=== PATIENT | female | born 1950 | race Caucasian/White ===

== ENCOUNTER 2020-11-14 16:09 | Emergency (ER) | payer MEDICARE, SELFPAY ==
[2020-11-14 16:34] VITALS: BP 183/78; PULSE 74; RESP 18; TEMP 36.6; O2SAT 95; BMI 27.4
--- NOTE | 2020-11-14 17:31 | ECG_ITS ---
Test Reason : anxiety Blood Pressure : / mmHG Vent. Rate : 070 BPM Atrial Rate : 070 BPM P-R Int : 188 ms QRS Dur : 084 ms QT Int : 382 ms P-R-T Axes : 028 -12 029 degrees QTc Int : 412 ms Normal sinus rhythm Voltage criteria for left ventricular hypertrophy Abnormal ECG When compared with ECG of 13-FEB-2018 15:47, Premature ventricular complexes are no longer Present Referred By: Lissette Rivera Electronically Signed By:ANASTASIYA BATES
--- NOTE | 2020-11-14 17:34 | ED_ITS ---
HPI - Anxiety General Chief Complaint: Anxiety Stated Complaint: Anxiety Time Seen by Provider: 11/14/20 16:57 Source: patient and family Mode of arrival: ambulatory Limitations: no limitations History of Present Illness HPI narrative: patient comes emergency room complaining of anxiety, and feeling like she wants to cry. she has had these feelings for 3 days, states that she had there are no significant event that may have triggered this anxiety. Patient has limited speech due to a previous stroke, however she was able to explain that she feels very anxious, has had this issues in the past before with anxiety. Patient was medicated, last time she had a panic attack was 1 and half years ago. Patient denies chest pain, no shortness of breath. Initially was noted that patient's blood pressure is 183/78, on recheck is 160/70, as mentioned above, no chest pain, no shortness of breath, denies leg swelling, states she is compliant with her blood pressure medication MD complaint: anxiety Related Data Previous Rx's Medication Instructions Recorded amlodipine 10 mg tablet 10 mg PO DAILY 90 Days #90 tab 10/03/20 aspirin 81 mg tablet,delayed 81 mg PO DAILY 90 Days #90 tab 10/03/20 release atorvastatin 80 mg tablet 80 mg PO BEDTIME 90 Days #90 tab 10/03/20 glipizide 5 mg tablet 5 mg PO DAILY 90 Days #90 tab 10/03/20 hydrochlorothiazide 25 mg tablet 25 mg PO DAILY 90 Days #90 tab 10/03/20 lisinopril 40 mg tablet 40 mg PO DAILY 90 Days #90 tab 10/03/20 metformin 1,000 mg tablet 1,000 mg PO BID 90 Days #180 tab 10/03/20 omeprazole 20 mg capsule,delayed 20 mg PO DAILY 90 Days #90 cap 10/03/20 release sitagliptin 25 mg tablet 25 mg PO DAILY 90 Days #90 tab 10/03/20 lorazepam [Ativan] 0.5 mg PO TID PRN #10 tab 11/14/20 Allergies Allergy/AdvReac Type Severity Reaction Status Date / Time No Known Allergies Allergy Verified 03/28/20 09:09 [No Known Allergies*] Review of Systems Review of Systems: Constitutional : No Weight loss, No Fever, No Chills, No Night Sweats, No Fatigue, No Malaise ENT/Mouth : No Hearing loss, No Ear Pain, No Nasal Congestion, No Sinus Pain, No Hoarseness, No sore throat, No Rhinorrhea, No Swallowing Difficulty Eyes: No Eye Pain, No Swelling, No Redness, No Foreign Body, No Discharge, No Vision Changes Cardiovascular : No Chest Pain, No SOB, No Dyspnea on Exertion, No Orthopnea, No Edema, No Palpitations Respiratory : No Cough, No Sputum, No Wheezing, No Smoke Exposure, No Dyspnea Gastrointestinal : No Nausea, No Vomiting, No Diarrhea, No Constipation, No abdominal Pain, No Hematochezia, No Melena Genitourinary : no irregular bleeding, No Dysuria, No Urinary Frequency, No Hematuria, No Urinary Incontinence, No Urgency, No Flank Pain, No Urinary Flow Changes, No Hesitancy Musculoskeletal : No joint pain, No Myalgias, No Joint Swelling Skin : No Skin Lesions, No rash Neuro : No Weakness, No Numbness, No Paresthesias, No Loss of Consciousness, No Dizziness, No Headache Psych : Complaining of anxiety and having the sensation that she wants to cry No SI/HI/AH/VH, No Social Issues, Heme/Lymph: No Bruising, No Bleeding,No Lymphadenopathy Endocrine : No Polyuria, No Polydipsia, No Temperature Intolerance PMFSH Past Medical History Medical History Diabetes mellitus Dyslipidemia Essential hypertension GERD (gastroesophageal reflux disease) Surgical History No pertinent past surgical history Family History Family History (Updated 03/28/20 @ 09:10 by Whit Tay Itzel) Father Stroke Mother No problems noted. Family/Other Hypertension Social History Social History Advance Directives: No Advance Directives Information Provided: Yes Physical Exam 2 Vital Signs: Vital Signs: Last Vital Signs Temp 98 F 11/14/20 16:34 Pulse 70 11/14/20 18:15 Resp 16 11/14/20 18:15 BP 126/83 11/14/20 18:15 Pulse Ox 100 11/14/20 18:15 Body Mass Index 27.4 Appearance: Alert. Oriented X3. No acute distress. mild anxiety Eyes: Pupils equal, round and reactive to light. ENT: Pharynx normal. Neck: Normal inspection. Neck supple. No lymph nodes noted. No crepitus CVS: Normal heart rate and rhythm. Pulses normal. Normal S1 and S2 Respiratory: No respiratory distress. Breath sounds normal. No Wheezing. No rales Abdomen: Soft and nontender. No rigidity. No distention. good BS x4 Skin: Skin warm and dry. Normal skin color. Normal skin turgor. Extremities: No lower extremity edema. No Lacerations. No Rash Neuro: Oriented X 3. No motor deficit. No sensory deficit. Moving all extermities. No slurred speech. Course Course Course Narrative: 1 mg of Ativan was given to the patient, blood pressure improved to 127/54, no longer feeling anxious, no chest pain, no shortness of breath. I discussed with the patient and her daughter, that Ativan causes addiction, only to be used p.r.n., if patient continues having frequent anxiety episodes, she may need a long-term medication MDM - Anxiety ECG Data Attestation: I personally reviewed and interpreted this ECG as follows: ( normal sinus rhythm, heart rate 70, no ST segment depression or elevation, no T-wave inversion, QTC 412) Discharge Plan Discharge Clinical Impression: Acute anxiety Patient Disposition: Home, Self-Care Instructions: Anxiety (ED) Additional Instructions: Please follow-up with your primary care physician tomorrow. If you have any worsening or new symptoms, please return to the emergency room or call 911 Prescriptions: New lorazepam [Ativan] 0.5 mg tablet 0.5 mg PO TID PRN (Reason: anxiety) Qty: 10 RF: 0 No Action amlodipine 10 mg tablet 10 mg PO DAILY 90 Days Qty: 90 RF: 3 lisinopril 40 mg tablet 40 mg PO DAILY 90 Days Qty: 90 RF: 3 metformin 1,000 mg tablet 1,000 mg PO BID 90 Days Qty: 180 RF: 3 Januvia 25 mg tablet 25 mg PO DAILY 90 Days Qty: 90 RF: 3 glipizide 5 mg tablet 5 mg PO DAILY 90 Days Qty: 90 RF: 3 hydrochlorothiazide 25 mg tablet 25 mg PO DAILY 90 Days Qty: 90 RF: 3 atorvastatin 80 mg tablet 80 mg PO BEDTIME 90 Days Qty: 90 RF: 3 omeprazole 20 mg capsule,delayed release(DR/EC) 20 mg PO DAILY 90 Days Qty: 90 RF: 3 aspirin [Adult Aspirin Regimen] 81 mg tablet,delayed release (DR/EC) 81 mg PO DAILY 90 Days Qty: 90 RF: 3
[2020-11-14 17:37] VITALS: BP 164/70
[2020-11-14] MEDS: LORazepam 1 MG TABLET PO (17:41)
[2020-11-14 18:00] VITALS: BP 127/57; PULSE 74; RESP 16
[2020-11-14 18:15] VITALS: BP 126/83; PULSE 70; RESP 16; O2SAT 100
== END 2020-11-14 18:40 | disposition home or self-care (01) ==
PROVIDERS: Emergency Provider Emergency Medicine; PCP Internal Medicine
DX: F41.9 Anxiety disorder, unspecified (principal); E11.9 Type 2 diabetes mellitus without complications; I10 Essential (primary) hypertension; Z86.73 Personal history of transient ischemic attack (TIA), and cerebral infarction without residual deficits; Z79.82 Long term (current) use of aspirin; Z79.84 Long term (current) use of oral hypoglycemic drugs; Z79.899 Other long term (current) drug therapy
CPT/HCPCS: 93005; 99283; 99284

== ENCOUNTER 2021-09-22 09:19 | Outpatient (REF) | payer OTHER, SELFPAY ==
[2021-09-22 10:48] LABS: Alanine Aminotransferase 36 U/L (0-31); Albumin Level 4.6 g/dL (3.5-5.0); Alkaline Phosphatase 133 U/L (39-117); Anion Gap 15 (12-20); Aspartate Amino Transferase 29 U/L (5-31); Bilirubin Total 0.9 mg/dL (0.0-1.0); Blood Urea Nitrogen 12 mg/dL (9-16); Calcium 10.5 mg/dL (8.4-10.2); Carbon Dioxide 29 mmol/L (22-29); Chloride 100 mmol/L (96-108); Cholesterol 174 mg/dL; Estimated Glomerular Filt Rate > 60; Glucose Fasting 168 mg/dL (60-99); HDL Cholesterol 40 mg/dL; LDL Cholesterol Calculated 114 mg/dl; Potassium 5.4 mmol/L (3.3-5.1); Sodium 139 mmol/L (135-145); Total Protein 7.7 g/dL (6.5-8.0); Triglycerides 104 mg/dL
[2021-09-28 12:16] LABS: Vitamin D 25-OH, D2 <4 ng/mL; Vitamin D 25-OH, D3 18 ng/mL; Vitamin D 25-OH, Total 18 ng/mL (30-100)
== END 2021-09-22 09:20 | disposition home or self-care (01) ==
LOC: HO.LAB 09:19
PROVIDERS: PCP Internal Medicine; Visit Provider Internal Medicine
DX: I63.432 Cerebral infarction due to embolism of left posterior cerebral artery (principal); E55.9 Vitamin D deficiency, unspecified; E78.5 Hyperlipidemia, unspecified
CPT/HCPCS: 36415; 80053; 80061; 82306

== ENCOUNTER 2021-09-28 11:01 | Outpatient (REF) | payer OTHER, SELFPAY ==
[2021-09-28 12:11] LABS: Potassium 3.9 mmol/L (3.3-5.1)
== END 2021-09-28 11:02 | disposition home or self-care (01) ==
LOC: HO.LAB 11:01
PROVIDERS: PCP Internal Medicine; Referring Provider Internal Medicine; Visit Provider Nurse Practitioner Family
DX: E87.5 Hyperkalemia (principal)
CPT/HCPCS: 36415; 84132

== ENCOUNTER 2021-12-22 22:39 | Emergency (ER) | payer OTHER, SELFPAY ==
[2021-12-22 22:51] VITALS: BP 149/89; PULSE 92; RESP 16; TEMP 36.8; O2SAT 97; BMI 28.1
--- NOTE | 2021-12-22 23:36 | ED_ITS ---
HPI - General Adult General Chief complaint: General Medical Stated complaint: Pain on right shoulder shooting up to ear Time Seen by Provider: 12/22/21 23:29 Source: patient Mode of arrival: ambulatory Limitations: no limitations History of Present Illness HPI narrative: Patient comes to emergency room complaining of right-sided neck pain, right shoulder pain for 2 days. Patient denies any trauma. Patient is unable to speak much due to a previous CVA. Patient states that the pain has been present for couple of days, did not improve with ibuprofen. Due to the CVA, patient is unable to move her right arm Related Data Previous Rx's Medication Instructions Recorded lorazepam 0.5 mg tablet (Ativan) 0.5 mg PO TID PRN anxiety #10 tabs 11/14/20 amlodipine 10 mg tablet 10 mg PO DAILY 90 days #90 tabs 10/21/21 aspirin 81 mg tablet,delayed 81 mg PO DAILY 90 days #90 tabs 10/21/21 release (Adult Aspirin Regimen) atorvastatin 80 mg tablet 80 mg PO BEDTIME 90 days #90 tabs 10/21/21 blood sugar diagnostic (FreeStyle #100 ea 10/21/21 Lite Strips) escitalopram oxalate 10 mg tablet 10 mg PO BEDTIME 90 days #90 tabs 10/21/21 hydrochlorothiazide 25 mg tablet 25 mg PO DAILY 90 days #90 tabs 10/21/21 lancets 28 gauge (FreeStyle #100 ea 10/21/21 Lancets) lisinopril 40 mg tablet 40 mg PO DAILY 90 days #90 tabs 10/21/21 metformin 1,000 mg tablet 1,000 mg PO BID 90 days #180 tabs 10/21/21 omeprazole 20 mg capsule,delayed 20 mg PO DAILY 90 days #90 caps 10/21/21 release sitagliptin 50 mg tablet (Januvia) 50 mg PO DAILY 90 days #90 tabs 10/21/21 glipizide 10 mg tablet 10 mg PO DAILY #90 tabs 10/31/21 blood-glucose meter (FreeStyle #1 ea 12/07/21 Lite Meter kit) diazepam 2 mg tablet 2 mg PO BID PRN muscle spasm #4 12/22/21 tabs tramadol 50 mg tablet 50 mg PO BID PRN pain #5 tabs 12/22/21 Allergies Allergy/AdvReac Type Severity Reaction Status Date / Time No Known Allergies Allergy Verified 12/07/21 09:17 [No Known Allergies*] Review of Systems Review of Systems: Constitutional : No Weight loss, No Fever, No Chills, No Night Sweats, No Fatigue, No Malaise ENT/Mouth : No Hearing loss, No Ear Pain, No Nasal Congestion, No Sinus Pain, No Hoarseness, No sore throat, No Rhinorrhea, No Swallowing Difficulty Eyes: No Eye Pain, No Swelling, No Redness, No Foreign Body, No Discharge, No Vision Changes Cardiovascular : No Chest Pain, No SOB, No Dyspnea on Exertion, No Orthopnea, No Edema, No Palpitations Respiratory : No Cough, No Sputum, No Wheezing, No Smoke Exposure, No Dyspnea Gastrointestinal : No Nausea, No Vomiting, No Diarrhea, No Constipation, No abdominal Pain, No Hematochezia, No Melena Genitourinary : no irregular bleeding, No Dysuria, No Urinary Frequency, No Hematuria, No Urinary Incontinence, No Urgency, No Flank Pain, No Urinary Flow Changes, No Hesitancy Musculoskeletal : Complaining of right-sided shoulder pain, complaining of suprascapular pain to palpation, No Myalgias, No Joint Swelling Skin : No Skin Lesions, No rash Neuro : No Weakness, No Numbness, No Paresthesias, No Loss of Consciousness, No Dizziness, No Headache Psych : No Anxiety/Panic, No Depression, No SI/HI/AH/VH, No Social Issues, Heme/Lymph: No Bruising, No Bleeding,No Lymphadenopathy Endocrine : No Polyuria, No Polydipsia, No Temperature Intolerance [facility] Past Medical History Medical History CVA (cerebral vascular accident) Diabetes mellitus Dyslipidemia Essential hypertension DIOMEDES (generalized anxiety disorder) GERD (gastroesophageal reflux disease) Insomnia Mild depression Surgical History No pertinent past surgical history Family History Family History Father Stroke Mother No problems noted. Family/Other Hypertension Social History Social History Housing: Apartment Alcohol intake: never Patient Tobacco Use Status: Former Tobacco user Tobacco use type: Cigarette e-Cigarette/Vaping Use: Never Used Second Hand Smoke Exposure: No Advance Directives: Yes Advance Directives on File: Yes Advance Directives Date on File: 12/21/21 service: No Current occupational status: disabled Cognitive needs: No Hearing needs: No Vision needs: No Physical Exam ED Vital Signs: Vital Signs - 24 hr 12/22/21 22:51 Temperature 98.2 F Pulse Rate 92 Respiratory Rate 16 Blood Pressure 149/89 H Pulse Oximetry 97 Oxygen Delivery Method Room Air BMI result Body Mass Index 28.1 Const Other: Appearance: Alert. Oriented X3. No acute distress. Eyes: Pupils equal, round and reactive to light. ENT: Pharynx normal. Neck: Normal inspection. Neck supple. No lymph nodes noted. No crepitus CVS: Normal heart rate and rhythm. Pulses normal. Normal S1 and S2 Respiratory: No respiratory distress. Breath sounds normal. No Wheezing. No rales Abdomen: Soft and nontender. No rigidity. No distention. Skin: Skin warm and dry. Normal skin color. Normal skin turgor. Extremities: No lower extremity edema. Patient seems to have a frozen shoulder on the right side. palpable muscle spasm in suprascapular area Neuro: Oriented X 3. No motor deficit. No sensory deficit. Moving all extremities. No slurred speech. CN 2 through 12 grossly intact Psych: calm, cooperative, normal affect Course Course Course Narrative: No imaging is indicated at this time. I discussed with the patient she has palpable muscle spasms. Due to patient's previous CVA and lack of mobility, patient may have a frozen shoulder. Patient was given 1 dose of p.o. tramadol and Valium 2 mg. Patient will likely need physical therapy Discharge Plan Discharge Clinical Impression: Frozen shoulder, Muscle spasm Patient Disposition: Home, Self-Care Instructions: Adhesive Capsulitis (ED), Muscle Spasm (ED) Additional Instructions: Please follow-up with your primary care physician tomorrow. If you have any worsening or new symptoms, please return to the emergency room or call 911 Prescriptions: New tramadol 50 mg tablet 50 mg PO BID PRN (Reason: pain) Qty: 5 0RF diazepam 2 mg tablet 2 mg PO BID PRN (Reason: muscle spasm) Qty: 4 0RF No Action amlodipine 10 mg tablet 10 mg PO DAILY 90 Days Qty: 90 3RF aspirin [Adult Aspirin Regimen] 81 mg tablet,delayed release (/EC) 81 mg PO DAILY 90 Days Qty: 90 3RF atorvastatin 80 mg tablet 80 mg PO BEDTIME 90 Days Qty: 90 3RF (DME) FreeStyle Lite Strips Strip See Rx Instructions .Route Qty: 100 2RF Rx Instructions: Use 1 test strip once a day escitalopram oxalate 10 mg tablet 10 mg PO BEDTIME 90 Days Qty: 90 1RF hydrochlorothiazide 25 mg tablet 25 mg PO DAILY 90 Days Qty: 90 3RF (DME) lancets [FreeStyle Lancets] 28 gauge misc See Rx Instructions .Route Qty: 100 2RF Rx Instructions: Use 1 lancet once a day lisinopril 40 mg tablet 40 mg PO DAILY 90 Days Qty: 90 3RF metformin 1,000 mg tablet 1,000 mg PO BID 90 Days Qty: 180 3RF omeprazole 20 mg capsule,delayed release(DR/EC) 20 mg PO DAILY 90 Days Qty: 90 3RF Januvia 50 mg tablet 50 mg PO DAILY 90 Days Qty: 90 1RF glipizide 10 mg tablet 10 mg PO DAILY Qty: 90 0RF lorazepam [Ativan] 0.5 mg tablet 0.5 mg PO TID PRN (Reason: anxiety) Qty: 10 0RF (DME) blood-glucose meter [FreeStyle Lite Meter] Kit See Rx Instructions .Route Qty: 1 0RF Rx Instructions: As directed
[2021-12-23] MEDS: traMADoL HCL 50 MG TABLET PO (00:06)
[2021-12-23] MEDS: diazePAM 2 MG TABLET PO (00:06)
== END 2021-12-23 00:10 | disposition home or self-care (01) ==
PROVIDERS: Emergency Provider Emergency Medicine; PCP Internal Medicine
DX: M75.01 Adhesive capsulitis of right shoulder (principal); M62.838 Other muscle spasm; E11.9 Type 2 diabetes mellitus without complications; I10 Essential (primary) hypertension; E78.5 Hyperlipidemia, unspecified; Z79.02 Long term (current) use of antithrombotics/antiplatelets; Z79.82 Long term (current) use of aspirin; Z79.899 Other long term (current) drug therapy; Z87.891 Personal history of nicotine dependence; Z79.84 Long term (current) use of oral hypoglycemic drugs
CPT/HCPCS: 99283

== ENCOUNTER 2022-01-05 10:35 | Outpatient (REF) | payer OTHER, SELFPAY ==
--- NOTE | ~2022-01-05 | MM_ITS ---
EXAMINATION: MM SCREENING DIGITAL BREAST TOMOSYNTHESIS, BILATERAL CLINICAL INFORMATION: Screening. Asymptomatic. The lifetime risk of breast cancer based on the Tyrer-Cuzick Model is 4%. COMPARISON: Mammography: 03/06/2018, 11/19/2016, 11/16/2015 TECHNIQUE: Digital breast tomosynthesis is performed in both the craniocaudal and mediolateral oblique views along with computer-aided detection (CAD). Synthesized 2D images are generated from the tomosynthesis. FINDINGS: There are scattered areas of fibroglandular density (ACR BI-RADS breast composition Category b). There are no significant masses, abnormal calcifications, or other abnormalities. Parenchymal pattern is similar to prior studies. There is no developing density or architectural abnormality. The axilla and skin contours are unremarkable. No significant changes. MM/MM tomosynthesis screening BI IMPRESSION: No mammographic evidence of malignancy. ASSESSMENT: BI-RADS 1: Negative RECOMMENDATION: Routine annual mammography screening. This patient's information was entered into a reminder system with a target due date for their next mammogram.
--- NOTE | ~2022-01-05 | MM_ITS ---
EXAMINATION: BONE DENSITOMETRY CLINICAL INDICATION: Asymptomatic menopausal state. COMPARISON: Previous BD dated 12/16/2018 and baseline BD dated 01/20/2010. TECHNIQUE: Using a [employer] DXA System (software version: 13.1) manufactured by [employer], dual-energy x-ray absorptiometry was performed of the lumbar spine and left hip. The images are of good technical quality. Summary results are attached. FINDINGS: AP SPINE L1-L4: Current: BMD 1.188 g/cm2, Z-score 1.4, T-score 0.1, normal, 5.5% increase from previous, 9.1% increase from baseline (<5% change is not significant). Prior: BMD 1.126 g/cm2. Baseline: BMD 1.089 g/cm2. LEFT FEMUR, NECK: Current: BMD 0.792 g/cm2, Z-score -0.3, T-score -1.8, osteopenia. Prior: BMD 0.871 g/cm2. Baseline: BMD 0.848 g/cm2. LEFT FEMUR, TOTAL: Current: BMD 0.829 g/cm2, Z-score -0.2, T-score -1.4, osteopenia, 6.2% decrease from previous, 5.3% decrease from baseline (<5% change is not significant). Prior: BMD 0.884 g/cm2. Baseline: BMD 0.875 g/cm2. IDENTIFIED RISK FACTORS: Early menopause, secondary osteoporosis. HISTORY OF FRACTURE: None listed. MEDICATIONS: None listed. MM/XR DEXA axial skeleton IMPRESSION: 1. DIAGNOSIS: Osteopenia based on the lowest T-score value of -1.8 in the femoral neck applying World Health Organization criteria. 2. 10-YEAR FRACTURE RISK PREDICTION, FRAX: Major osteoporotic fracture (clinical spine, forearm, hip or shoulder) 5.9%. Hip fracture 0.9%. 3. Treatment Recommendations: NOF guidelines recommend consideration for treatment in postmenopausal women and men age 50 and older presenting with the following: -A hip or vertebral (clinical or morphometric) fracture. -T-score less than or equal to -2.5 at the femoral neck or spine after appropriate evaluation to exclude secondary causes. -Low bone mass at the hip or spine and a 10-year fracture probability by FRAX of greater than or equal to 3% for hip fracture or greater than or equal to 20% for major osteoporotic fracture based on the [place] adapted WHO algorithm. 4. Other Recommendations: All treatment decisions require clinical judgment and consideration of individual patient factors, including patient preferences, comorbidities, previous drug use, risk factors not captured in the FRAX model (e.g. frailty, falls, vitamin D deficiency, increased bone turnover, interval significant decline in bone density) and possible under or overestimation of fracture risk by FRAX. Additional medical evaluation for secondary cause of low bone mineral density may be appropriate. FUTURE SCAN RECOMMENDATION: People with diagnosed cases of osteoporosis or at high risk for fracture should have regular bone mineral density tests. For patients eligible for Medicare, routine testing is allowed once every 2 years. The testing frequency can be increased to one year for patients who have rapidly progressing disease, those who are receiving or discontinuing medical therapy to restore bone mass, or have additional risk factors.
== END 2022-01-05 10:36 | disposition home or self-care (01) ==
LOC: HO.MAMMO 10:35
PROVIDERS: PCP Internal Medicine; Visit Provider Internal Medicine
DX: Z12.31 Encounter for screening mammogram for malignant neoplasm of breast (principal); Z13.820 Encounter for screening for osteoporosis; Z78.0 Asymptomatic menopausal state
CPT/HCPCS: 77063; 77067; 77080

== ENCOUNTER 2022-12-14 08:15 | Outpatient (REF) | payer OTHER, SELFPAY ==
[2022-12-14 10:57] LABS: MANUAL DIFF FLAG NO
[2022-12-14 11:03] LABS: Basophils Percent Auto 0.5 % (0-2); Eosinophils Absolute Auto 0.2 X10*3/uL (0.0-0.4); Eosinophils Percent Auto 2.3 % (0-4); Hematocrit 37.7 % (37.0-47.0); Hemoglobin 12.6 g/dl (12.0-16.0); Imm Gran Abs Auto 0.02 X10*3/uL (0.00-0.03); Imm Gran Pct Auto 0.3 % (0.0-0.4); Lymphocytes Absolute Auto 1.4 X10*3/uL (1.2-4.9); Lymphocytes Percent Auto 22.5 % (20-40); Mean Corpuscular HGB Conc 33.4 g/dl (31.0-35.0); Mean Corpuscular Hemoglobin 32.6 pg (27.0-33.0); Mean Corpuscular Volume 97.4 fL (80.0-98.0); Mean Platelet Volume 10.1 fL (9.4-12.3); Monocytes Absolute Auto 0.4 X10*3/uL (0.1-1.2); Monocytes Percent Auto 6.3 % (2-11); Neutrophils Absolute Auto 4.4 x10*3/uL (2.0-8.3); Neutrophils Percent Auto 68.1 % (45-73); Platelet Count 252 X10*3/uL (160-400); Red Blood Count 3.87 X10*6/uL (4.20-5.50); Red Cell Distribution Width 12.5 % (11.0-16.0); White Blood Count 6.4 X10*3/uL (4.8-10.8)
[2022-12-14 20:13] LABS: Alanine Aminotransferase 60 U/L (0-31); Albumin Level 4.4 g/dL (3.5-5.0); Alkaline Phosphatase 96 U/L (39-117); Anion Gap 18 (12-20); Aspartate Amino Transferase 33 U/L (5-31); Bilirubin Total 0.4 mg/dL (0.0-1.0); Blood Urea Nitrogen 10 mg/dL (9-16); Calcium 10.2 mg/dL (8.4-10.2); Carbon Dioxide 26 mmol/L (22-29); Chloride 102 mmol/L (96-108); Cholesterol 157 mg/dL; Estimated Glomerular Filt Rate > 60; Glucose Fasting 245 mg/dL (60-99); HDL Cholesterol 42 mg/dL; LDL Cholesterol Calculated 66 mg/dl; Potassium 5.2 mmol/L (3.3-5.1); Sodium 141 mmol/L (135-145); Thyroid Stimulating Hormone 0.87 uIU/mL (0.32-4.0); Total Protein 7.2 g/dL (6.5-8.0); Triglycerides 245 mg/dL
[2022-12-14 22:35] LABS: Folate 14.4 ng/mL (> or = 4.0); Vitamin B12 409 pg/mL (200-900)
== END 2022-12-14 08:16 | disposition home or self-care (01) ==
LOC: HO.10HDL 08:15
PROVIDERS: Visit Provider Internal Medicine
DX: E11.9 Type 2 diabetes mellitus without complications (principal); D64.9 Anemia, unspecified; E53.8 Deficiency of other specified B group vitamins; R63.4 Abnormal weight loss; E78.5 Hyperlipidemia, unspecified; E55.9 Vitamin D deficiency, unspecified
CPT/HCPCS: 36415; 80053; 80061; 82306; 82607; 82746; 84443; 85025

== ENCOUNTER 2022-12-17 09:59 | Outpatient (AMB) | payer OTHER, SELFPAY ==
[2022-12-17 09:59] VITALS: BP 126/80; PULSE 83; O2SAT 96; BMI 24.4
--- NOTE | 2022-12-17 09:59 | MHC.PC.OV ---
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 Required: No Accompanied by: Daughter Allergies No Known Allergies [No Known Allergies*] Allergy (Verified 12/17/22 10:11) Medication List - Last Reconciled 12/17/22 by Soo Robertson MD amlodipine 10 mg PO DAILY 90 days aspirin (Adult Aspirin Regimen) 81 mg PO DAILY 90 days atorvastatin 80 mg PO BEDTIME 90 days blood sugar diagnostic (FreeStyle Lite Strips) Use 1 test strip once a day blood-glucose meter (FreeStyle Lite Meter kit) As directed diazepam 2 mg PO BID PRN escitalopram oxalate 10 mg PO BEDTIME 90 days glipizide 10 mg PO DAILY hydrochlorothiazide 25 mg PO DAILY 90 days lancets (FreeStyle Lancets) Use 1 lancet once a day lisinopril 40 mg PO DAILY 90 days lorazepam (Ativan) 0.5 mg PO TID PRN metformin 1,000 mg PO BID 90 days omeprazole 20 mg PO DAILY 90 days sitagliptin phosphate 100 mg PO DAILY 90 days tramadol 50 mg PO BID PRN Tobacco use date assessed: 12/17/22 Fall risk assessment: 2 + Falls in past year Last assessed Fall Risk: 12/17/22 Dental Screening Dental Screen Date: 12/17/22 Did you have a dental visit in the last 12 months?: No Did you have a dental problem in the last 6 months where you did not have access to dental care?: No Was dental information given to patient?: Patient has dentist HPI HPI Comments History of Present Illness Details This is a 72-year-old female with diabetes mellitus type 2 and stroke in 2004 with speech deficit and right hemiplegia as residual deficit that comes for her physical exam accompanied by daughter which is the snack stewardess. Last mammogram was December 2021. Last colonoscopy was 2017 and next colonoscopy should be 2027. A1c within goal. Has difficulty walking and lost her cane. She will highly benefit from using a cane. Has urinary incontinence which is when she laughs or coughs and will benefit from liner pads and bed pads. Also lives in 7 floor and sometimes elevator breaks and this is why she will benefit from 1st or 2nd floor. She also has mild depression that has improved with escitalopram. [facility] Medical History (Updated 12/17/22 @ 10:24 by Soo Robertson MD) CVA (cerebral vascular accident) Diabetes mellitus Dyslipidemia Essential hypertension DIOMEDES (generalized anxiety disorder) GERD (gastroesophageal reflux disease) Insomnia Mild depression Surgical History No pertinent past surgical history Family History (Updated 12/17/22 @ 10:14 by Soo Robertson MD) Father Stroke Mother No problems noted. Family/Other Hypertension Social History Housing: Apartment Alcohol intake: never Patient Tobacco Use Status: Former Tobacco user Tobacco use type: Cigarette e-Cigarette/Vaping Use: Never Used Second Hand Smoke Exposure: No Advance Directives Date on File: 12/21/21 service: No Current occupational status: disabled Cognitive needs: No Hearing needs: No Vision needs: No Questionnaire PHQ-9 Over the last 2 weeks, how often have you been bothered by any of the following problems? 1. Little interest or pleasure in doing things: several days 2. Feeling down, depressed, or hopeless: not at all 3. Trouble falling or staying asleep, or sleeping too much: several days 4. Feeling tired or having little energy: not at all 5. Poor appetite or overeating: not at all 6. Feeling bad about yourself - or that you are a failure or have let yourself or your family down: not at all 7. Trouble concentrating on things, such as reading the newspaper or watching television: not at all 8. Moving or speaking so slowly that other people could have noticed. Or the opposite - being so fidgety or restless that you have been moving around a lot more than usual: not at all 9. Thoughts that you would be better off or of hurting yourself in some way: not at all Total score: 2 Depression Screening Interpretation: Negative 14391 - PHQ-9 Billing: Yes Source: Developed by Drs. Ayush Macdonald, Karol Martinez, Saud Markham and colleagues, with an educational mili from [employer]. Thrive Questionnaire Date Thrive assessed: 12/17/22 I am a: Patient What is your living situation today?: I have a steady place to live Within the past 12 months, did the food you bought not last and you didn't have the money to get more?: Never true Within the past 12 months, did you worry whether your food would run out before you got money to buy more?: Never true Do you have trouble paying for medicines?: No Do you have trouble getting transportation to medical appointments?: No Do you have trouble paying your heating and electricity bill?: No Do you have trouble taking care of your child, family member or friend?: No Do you have trouble with day-to-day activities such as bathing, preparing meals, shopping, managing finances, etc.?: No Are you currently unemployed and looking for a job?: No Are you interested in more education?: No Please select the resources that you would like help with: None Currently or been in a relationship where the following occur: no concerns reported AUDIT C Alcohol Use Questionnaire (AUDIT-C) 1. How often do you have a drink containing alcohol?: Never Total Score: 0 DIOMEDES-7 AMB Questionnaire DIOMEDES-7 Date DIOMEDES - 7 assessed: 12/17/22 Feeling nervous, anxious, or on edge: 1 = Several days Not being able to stop or control worryin = Not at all Worrying too much about different things: 0 = Not at all Trouble relaxin = Not at all Being so restless that it is hard to sit still: 0 = Not at all Becoming easily annoyed or irritable: 0 = Not at all Feeling afraid as if something awful might happen: 0 = Not at all Total DIOMEDES-7 score (0-4 normal; 5-9 mild; 10-14 moderate; 15-21 severe): 1 Source: Developed by Drs. Ayush Macdonald, Karol Martinez, Saud Markham and colleagues, with an educational mili from [employer]. DIOMEDES-7 Assessment Billing DIOMEDES-7 Assessment Tool: DIOMEDES-7 Assessment 08474 Review of Systems Const All systems reviewed & are unremarkable except as noted in HPI and below Eyes Reports no additional complaints, Denies change in vision and Denies other visual disturbances Card Denies chest pain at rest, Denies chest pain with activity, Denies edema, Denies irregular heart rhythm, Denies claudication, Denies dyspnea, Denies dyspnea on exertion, Denies orthopnea, Denies paroxysmal nocturnal dyspnea and Denies slow heart rate Resp Denies cough, Denies dyspnea and Denies dyspnea on exertion GI Denies abdominal pain, Denies change in bowel habits, Denies excessive flatus, Denies nausea and Denies vomiting Denies urinary incontinence, Denies urinary hesitancy and Denies urinary urgency Musc Reports abnormal gait, Denies atrophy, Denies deformity and Denies limited range of motion Skin/Breast Denies bleeding lesions, Denies changing lesions and Denies rash Neuro Reports Abnormal speech present, Reports abnormal gait and Reports focal weakness Physical exam (Primary Care) Vital Signs: Last Vital Signs Pulse 83 12/17/22 09:59 BP 126/80 12/17/22 09:59 Pulse Ox 96 12/17/22 09:59 Oxygen Delivery Method Room Air 12/17/22 09:59 BMI result Body Mass Index 24.4 Tobacco/Smoking Status: Tobacco use Status Tobacco use date assessed 12/17/22 12/17/22 10:06 Patient Tobacco Use Status Former Tobacco user 12/17/22 10:06 Tobacco use type Cigarette 12/17/22 10:06 e-Cigarette/Vaping Use Never Used 12/17/22 10:06 PHQ-9: PHQ-9 Score PHQ-9: Total score 2 12/17/22 10:22 Depression Screening Interpretation: Negative Thrive Assessment: Date of Thrive Assessment Date Thrive assessed 12/17/22 12/17/22 10:06 Currently or been in a relationship where the following occur: no concerns reported Const Orientation/consciousness: patient oriented x3 [facility] Head: Yes normal to inspection, Yes normocephalic and Yes atraumatic Ears: external ears normal Eyes General: appearance normal, both eyes and all related structures Eyelids: Yes eyelids normal Conjunctivae: conjunctivae normal Neck Neck: Yes normal visual inspection and Yes supple Resp Effort & Inspection: normal respiratory effort Auscultation: clear to auscultation bilaterally Cardio Jugular venous distension: no JVD Rate: regular rate Rhythm: regular rhythm Heart sounds: S1 normal heart sound present and S2 normal heart sound present GI Inspection: Yes normal to inspection Palpation (GI): Soft to palpation and nontender Auscultation: normal bowel sounds Skin General skin exam: no rashes or lesions noted Neuro Other: right toe deviated inward General: patient oriented x3 Speech: Abnormal speech present Motor exam (neuro): Abnormal motor strength present (strength 5/5 in left side, 3/5 in right upper and 4/5 in right lower) Extrem Other: right hand closed in a fist, limited right knee flexion Psych Appearance: grossly normal Results AMB Hemoglobin A1c AMB Hemoglobin A1c 6.3 % Last Edit by Rober Huynh on 12/17/22 10:23 Results Reviewed Results Reviewed: Laboratory Last Values Hgb A1c (Clinic) 6.3 % (4.0-6.0) H 12/17/22 10:19 Assessment and Plan Assessment & Plan (1) Physical exam: Code(s): Z00.00 - Encounter for general adult medical examination without abnormal findings Plan: Repeat in a year (2) CVA (cerebral vascular accident): Comment: 2004 Code(s): I63.9 - Cerebral infarction, unspecified Qualifiers: CVA mechanism: embolism Precerebral and cerebral artery: posterior cerebral artery Laterality of affected vessel: left Qualified Code(s): I63.432 - Cerebral infarction due to embolism of left posterior cerebral artery Plan: Continue aspirin for secondary prophylaxis. Keep blood pressure within goal being less than 130/80. (3) Diabetes mellitus: Code(s): E11.9 - Type 2 diabetes mellitus without complications Qualifiers: Diabetes mellitus type: type 2 Diabetes mellitus intermediate insulin use: without home economist use Diabetes mellitus complication status: with hyperglycemia Qualified Code(s): E11.65 - Type 2 diabetes mellitus with hyperglycemia Plan: Continue glipizide, metformin and Januvia. A1c goal is equal or less than 7%. (4) Right hemiplegia: Code(s): G81.91 - Hemiplegia, unspecified affecting right dominant side Plan: Use a cane for gait stability. (5) Mild depression: Code(s): F32.0 - Major depressive disorder, single episode, mild Plan: Continue escitalopram. Orders: Orders Potassium Today E87.5 - Hyperkalemia Lipid Panel 4 Months E78.5 - Hyperlipidemia, unspecified Microalbumin, Random (w Creat) 4 Months E11.9 - Type 2 diabetes mellitus without complications Vitamin D 25-OH Total 4 Months E55.9 - Vitamin D deficiency, unspecified Comprehensive [place]. Panel Fast 4 Months I10 - Essential (primary) hypertension MM screening mammo BI Today Z12.31 - Encounter for screening mammogram for malignant neoplasm of breast AMB Hemoglobin A1c Today Z13.9 - Encounter for screening, unspecified Medications: New cane As directed 1 ea 0RF G81.91 - Hemiplegia, unspecified affecting right dominant side, I63.9 - Cerebral infarction, unspecified incontinence pad, liner, disp Use 1 pad three times a day as needed 90 ea 11RF N39.3 - Stress incontinence (female) (male), N39.490 - Overflow incontinence underpads (Bed Underpads) Use 2 bed underpads at bedtime as needed 100 ea 6RF N39.3 - Stress incontinence (female) (male), N39.490 - Overflow incontinence Coding Level of Care Code Est Pt Prev Care >65y(73160) Diagnoses Physical exam Z00.00 CVA (cerebral vascular accident) I63.432 CVA mechanism: embolism Precerebral and cerebral artery: posterior cerebral artery Laterality of affected vessel: left Diabetes mellitus E11.65 Diabetes mellitus type: type 2 Diabetes mellitus intermediate insulin use: without intermediate use Diabetes mellitus complication status: with hyperglycemia Right hemiplegia G81.91 Mild depression F32.0 Additional Codes DIOMEDES-7 Assessment Billing - DIOMEDES-7 Assessment Tool: DIOMEDES-7 Assessment 37902 ([id number]) Time Spent (min) 35
== END 2022-12-17 10:24 | disposition home or self-care (01) ==
PROVIDERS: Visit Provider Internal Medicine
DX: Z00.00 Encounter for general adult medical examination without abnormal findings (principal); I63.432 Cerebral infarction due to embolism of left posterior cerebral artery; E11.65 Type 2 diabetes mellitus with hyperglycemia; F33.0 Major depressive disorder, recurrent, mild; G81.91 Hemiplegia, unspecified affecting right dominant side
CPT/HCPCS: 83036; 96127; 99397

== ENCOUNTER 2023-02-06 08:22 | Outpatient (REF) | payer OTHER, SELFPAY | END 2023-02-06 08:23 | disposition home or self-care (01) | LOC: HO.MAMMO 08:22 | PROVIDERS: PCP Internal Medicine; Visit Provider Internal Medicine | DX: Z12.31 Encounter for screening mammogram for malignant neoplasm of breast (principal) | CPT/HCPCS: 77063; 77067 ==

== ENCOUNTER → 2023-02-06 08:45 | Outpatient (BNV) | payer OTHER, SELFPAY | PROVIDERS: PCP Internal Medicine; Visit Provider Radiology Diagnostic Radiology | DX: Z12.31 Encounter for screening mammogram for malignant neoplasm of breast (principal) | CPT/HCPCS: 77063; 77067 ==

== ENCOUNTER 2023-04-13 14:54 | Emergency (ER) | payer OTHER, SELFPAY ==
--- NOTE | ~2023-04-13 | XR_ITS ---
EXAMINATION: XR CHEST CLINICAL INFORMATION: Chest pain COMPARISON: Chest x-ray on 11/04/2016 TECHNIQUE: 2 views of the chest were obtained. FINDINGS: The cardiac silhouette is normal. There is mild diffuse bronchial wall thickening. There are no areas of consolidation. There are no pleural effusions or pneumothoraces. The bones and soft tissues are unremarkable for the patient's age. XR/XR chest 2V IMPRESSION: Bronchial wall thickening may be infectious and/or inflammatory in etiology.
--- NOTE | 2023-04-13 14:57 | ECG_ITS ---
Test Reason : CHEST PAIN Blood Pressure : / mmHG Vent. Rate : 096 BPM Atrial Rate : 096 BPM P-R Int : 128 ms QRS Dur : 088 ms QT Int : 340 ms P-R-T Axes : 049 -19 073 degrees QTc Int : 429 ms Normal sinus rhythm Left ventricular hypertrophy with repolarization abnormality ( R in aVL , [place] product ) Cannot rule out Septal infarct , age undetermined Abnormal ECG When compared with ECG of 14-NOV-2020 17:37, Minimal criteria for Septal infarct are now Present Non-specific change in ST segment in Lateral leads Referred By: Laura Ko Electronically Signed By:JOVANNI CARPENTER MD
[2023-04-13 15:13] VITALS: BP 134/62; PULSE 95; RESP 18; TEMP 36; O2SAT 96; BMI 21.9
--- NOTE | 2023-04-13 15:13 | ED_ITS ---
HPI - Chest Pain General Chief Complaint: Chest Pain Stated Complaint: chest pain/ dizziness Time Seen by Provider: 04/13/23 18:28 Source: patient and family Mode of arrival: ambulatory Limitations: no limitations History of Present Illness HPI narrative: Patient otherwise in stable health comes here for 2 days of chest discomfort shortness of breath cough weakness patient is nonverbal status post left MCA stroke but can express herself when asked . Patient daughter also been having cough for last few weeks tested negative for COVID. Saturating 96% on room air Related Data Previous Rx's Medication Instructions Recorded lorazepam 0.5 mg tablet (Ativan) 0.5 mg PO TID PRN anxiety #10 tabs 11/14/20 lancets 28 gauge (FreeStyle #100 ea 10/21/21 Lancets) blood-glucose meter (FreeStyle #1 ea 12/07/21 Lite Meter kit) diazepam 2 mg tablet 2 mg PO BID PRN muscle spasm #4 12/22/21 tabs tramadol 50 mg tablet 50 mg PO BID PRN pain #5 tabs 12/22/21 blood sugar diagnostic (FreeStyle #100 ea 10/24/22 Lite Strips) glipizide 10 mg tablet 10 mg PO DAILY #90 tabs 10/24/22 amlodipine 10 mg tablet 10 mg PO DAILY 90 days #90 tabs 12/08/22 aspirin 81 mg tablet,delayed 81 mg PO DAILY 90 days #90 tabs 12/08/22 release (Adult Aspirin Regimen) atorvastatin 80 mg tablet 80 mg PO BEDTIME 90 days #90 tabs 12/08/22 hydrochlorothiazide 25 mg tablet 25 mg PO DAILY 90 days #90 tabs 12/08/22 lisinopril 40 mg tablet 40 mg PO DAILY 90 days #90 tabs 12/08/22 metformin 1,000 mg tablet 1,000 mg PO BID 90 days #180 tabs 12/08/22 omeprazole 20 mg capsule,delayed 20 mg PO DAILY 90 days #90 caps 12/08/22 release cane #1 ea 12/17/22 incontinence pad, liner, disp #90 ea 12/17/22 underpads (Bed Underpads) #100 ea 12/17/22 sitagliptin phosphate 100 mg tablet 100 mg PO DAILY 90 days #90 tabs 03/02/23 escitalopram oxalate 10 mg tablet 10 mg PO BEDTIME 90 days #90 tabs 03/04/23 aluminum-mag hydroxide-simethicone 10 ml PO Q6H PRN dyspepsia #240 mL 04/13/23 200 mg-200 mg-20 mg/5 mL oral susp (Maalox Advanced) Allergies Allergy/AdvReac Type Severity Reaction Status Date / Time No Known Allergies Allergy Verified 04/13/23 15:13 [No Known Allergies*] Review of Systems 2 Review of Systems: Yes all other systems are reviewed and are negative [facility] Past Medical History Medical History CVA (cerebral vascular accident) Diabetes mellitus Dyslipidemia Essential hypertension DIOMEDES (generalized anxiety disorder) GERD (gastroesophageal reflux disease) Insomnia Mild depression Surgical History No pertinent past surgical history Family History Family History (Updated 12/17/22 @ 10:14 by Soo Robertson MD) Father Stroke Mother No problems noted. Family/Other Hypertension Social History Social History Housing: Apartment Alcohol intake: never Patient Tobacco Use Status: Former Tobacco user Tobacco use type: Cigarette e-Cigarette/Vaping Use: Never Used Second Hand Smoke Exposure: No Advance Directives: Yes Advance Directives on File: Yes Advance Directives Date on File: 12/21/21 service: No Current occupational status: disabled Cognitive needs: No Hearing needs: No Vision needs: No Physical Exam 2 Vital Signs: Vital Signs: Last Vital Signs Temp 96.8 F 04/13/23 15:13 Pulse 86 04/13/23 19:03 Resp 18 04/13/23 15:13 BP 127/53 L 04/13/23 19:03 Pulse Ox 97 04/13/23 19:03 O2 Del Method Room Air 04/13/23 19:03 BMI result Body Mass Index 21.9 Appearance: Alert. And awake nonverbal No acute distress. Eyes: PERRLA, No Nystagmus ENT: Pharynx normal. Oral Mucosa moist Neck: Normal inspection. Neck supple. CVS: Normal heart rate and rhythm. Pulses normal. Respiratory: No respiratory distress. Equal air entry bilateral, no wheezing/rales/rhonchi Abdomen: Soft and nontender. Bowel sounds are present, Skin: Skin warm and dry. Normal skin color. Normal skin turgor. Extremities: No lower extremity edema. No calf tenderness Neuro: Oriented X 3. Right residual deficit patient nonverbal Course Course Course Narrative: This is an RME: Additional HPI, ROS, PE not included below will be deferred to primary provider. Patient is a 72-year-old female past medical history of diabetes, hypertension, hyperlipidemia, anxiety, hx of CVA with dysphasia, daughter providinghistory, who presents emergency department for evaluation of dizziness noted with position change and head movement, shortness of breath upon exertion particularly with walking, midsternal chest pain constant since yesterday. Plan: Labs, EKG, CXR, viral testing. Medications Administered Discontinued Medications Generic Name Dose Route Start Last Admin Trade Name Freq PRN Reason Stop Dose Admin Benzonatate 200 mg 04/13/23 18:44 04/13/23 19:01 Benzonatate 100 Mg Capsule PO 04/13/23 18:45 200 mg ONCE ONE Administration Magnesium Oxide 400 mg 04/13/23 18:31 04/13/23 19:01 Magnesium Oxide 400 Mg Tablet PO 04/13/23 18:32 400 mg ONCE ONE Administration Medical Decision Making Medical Decision Making [facility] Narrative: Patient with COVID-19 positive chest x-ray negative saturating 96% low magnesium of 1.4 was given magnesium oxide in the ER discharged on Maalox advised to drink plenty of fluids and stay healthy Differential Diagnosis Differential Diagnoses: The differential diagnosis associated with the presentation includes A typically pneumonia/bronchitis/atypical chest pain/viral syndrome Admission/Observation Consideration of admission/observation: Escalation of care including admission/observation considered Lab Data [facility] Lab Attestation statement: I reviewed the patient's lab results. 04/13/23 15:11 04/13/23 15:11 Labs: Lab Results 04/13/23 Range/Units 15:11 WBC 8.2 (4.8-10.8) X10*3/uL RBC 4.38 (4.20-5.50) X10*6/uL Hgb 13.9 (12.0-16.0) g/dl Hct 39.8 (37.0-47.0) % MCV 90.9 (80.0-98.0) fL MCH 31.7 (27.0-33.0) pg MCHC 34.9 (31.0-35.0) g/dl RDW 11.6 (11.0-16.0) % Plt Count 378 D (160-400) X10*3/uL MPV 9.1 L (9.4-12.3) fL Immature Gran % (Auto) 0.4 (0.0-0.4) % Neut % (Auto) 64.8 (45-73) % Lymph % (Auto) 26.2 (20-40) % [place] % (Auto) 7.3 (2-11) % Eos % (Auto) 1.2 (0-4) % Baso % (Auto) 0.1 (0-2) % Lymph # (Auto) 2.1 (1.2-4.9) X10*3/uL [place] # (Auto) 0.6 (0.1-1.2) X10*3/uL Eos # (Auto) 0.1 (0.0-0.4) X10*3/uL Baso # (Auto) 0.0 (0.0-0.2) X10*3/uL Abs Immat Gran (auto) 0.03 (0.00-0.03) X10*3/uL Absolute Neuts (auto) 5.3 (2.0-8.3) x10*3/uL Absolute Nucleated RBC 0.000 (0.0-0.012) X10*3/uL Nucleated RBC % (auto) 0.0 (0.0-0.2) /100WBC PT 11.2 (11.1-13.3) SEC INR 0.9 (0.9-1.1) Sodium 135 (135-145) mmol/L Potassium 3.4 D (3.3-5.1) mmol/L Chloride 98 (96-108) mmol/L Carbon Dioxide 22 (22-29) mmol/L Anion Gap 18 (12-20) BUN 14 (9-16) mg/dL Creatinine 0.75 (0.5-1.4) mg/dL Estim Creat Clear Calc 55.2 Estimated GFR > 60 Random Glucose 86 (60-115) mg/dL Calcium 9.7 (8.4-10.2) mg/dL Magnesium 1.4 L* (1.6-2.6) mg/dL Total Bilirubin 0.5 (0.0-1.0) mg/dL AST 19 (5-31) U/L ALT 17 (0-31) U/L Alkaline Phosphatase 107 (39-117) U/L Troponin I High Sens < 2.7 (<3.5-17.0) ng/L B-Natriuretic Peptide < 10 (<100) pg/mL Total Protein 7.4 (6.5-8.0) g/dL Albumin 4.3 (3.5-5.0) g/dL COVID-19 ([facility]EN) Positive A (Negative) COVID-19 Clin Com See Note Influenza Type A (ALEXIA) Negative (Negative) Influenza Type B (ALEXIA) Negative (Negative) Influenza A & B Note See Note Independent Interpretation I performed an independent interpretation of an: EKG and Plain X-Ray Interpretation: Normal sinus rhythm heart rate 96 beats per minute normal interval normal axis, LVH no acute ST-T changes no acute ischemia Radiology Impression Discussion of test interpretation with radiology: I have reviewed the radiologist's reading. Discharge Plan Discharge Clinical Impression: COVID-19 Patient Disposition: Home, Self-Care Instructions: COVID-19 (Coronavirus Disease 2019) (ED) Additional Instructions: Drink plenty of fluids Report to the ER if increased shortness of breath Have food containing high magnesium Maalox daily before meals as needed Have food containing high magnesium like spinach, avacado, almonds Follow-up with your PCP Prescriptions: New alum-mag hydroxide-simeth [Maalox Advanced] 200-200-20 mg/5 mL suspension 10 ml PO Q6H PRN (Reason: dyspepsia) Qty: 240 0RF No Action (DME) lancets [FreeStyle Lancets] 28 gauge misc See Rx Instructions .Route Qty: 100 2RF Rx Instructions: Use 1 lancet once a day glipizide 10 mg tablet 10 mg PO DAILY Qty: 90 1RF (DME) FreeStyle Lite Strips Strip See Rx Instructions .Route Qty: 100 2RF Rx Instructions: Use 1 test strip once a day amlodipine 10 mg tablet 10 mg PO DAILY 90 Days Qty: 90 3RF omeprazole 20 mg capsule,delayed release(DR/EC) 20 mg PO DAILY 90 Days Qty: 90 3RF metformin 1,000 mg tablet 1,000 mg PO BID 90 Days Qty: 180 3RF lisinopril 40 mg tablet 40 mg PO DAILY 90 Days Qty: 90 3RF hydrochlorothiazide 25 mg tablet 25 mg PO DAILY 90 Days Qty: 90 3RF atorvastatin 80 mg tablet 80 mg PO BEDTIME 90 Days Qty: 90 3RF aspirin [Adult Aspirin Regimen] 81 mg tablet,delayed release (DR/EC) 81 mg PO DAILY 90 Days Qty: 90 3RF sitagliptin phosphate 100 mg tablet 100 mg PO DAILY 90 Days Qty: 90 1RF escitalopram oxalate 10 mg tablet 10 mg PO BEDTIME 90 Days Qty: 90 1RF lorazepam [Ativan] 0.5 mg tablet 0.5 mg PO TID PRN (Reason: anxiety) Qty: 10 0RF tramadol 50 mg tablet 50 mg PO BID PRN (Reason: pain) Qty: 5 0RF diazepam 2 mg tablet 2 mg PO BID PRN (Reason: muscle spasm) Qty: 4 0RF (DME) blood-glucose meter [FreeStyle Lite Meter] Kit See Rx Instructions .Route Qty: 1 0RF Rx Instructions: As directed (DME) cane Device See Rx Instructions .Route Qty: 1 0RF Rx Instructions: As directed (DME) incontinence pad, liner, disp Pad See Rx Instructions .Route Qty: 90 11RF Rx Instructions: Use 1 pad three times a day as needed (DME) underpads [Bed Underpads] Pad See Rx Instructions .Route Qty: 100 6RF Rx Instructions: Use 2 bed underpads at bedtime as needed Interventions: ED Discharge Assessment Last Done: 04/13/23 19:04 Discharge Date/Time: 04/13/23 19:08
[2023-04-13 15:17] LABS: MANUAL DIFF FLAG NO
[2023-04-13 15:18] LABS: Basophils Percent Auto 0.1 % (0-2); Eosinophils Absolute Auto 0.1 X10*3/uL (0.0-0.4); Eosinophils Percent Auto 1.2 % (0-4); Hematocrit 39.8 % (37.0-47.0); Hemoglobin 13.9 g/dl (12.0-16.0); Imm Gran Abs Auto 0.03 X10*3/uL (0.00-0.03); Imm Gran Pct Auto 0.4 % (0.0-0.4); Lymphocytes Absolute Auto 2.1 X10*3/uL (1.2-4.9); Lymphocytes Percent Auto 26.2 % (20-40); Mean Corpuscular HGB Conc 34.9 g/dl (31.0-35.0); Mean Corpuscular Hemoglobin 31.7 pg (27.0-33.0); Mean Corpuscular Volume 90.9 fL (80.0-98.0); Mean Platelet Volume 9.1 fL (9.4-12.3); Monocytes Absolute Auto 0.6 X10*3/uL (0.1-1.2); Monocytes Percent Auto 7.3 % (2-11); Neutrophils Absolute Auto 5.3 x10*3/uL (2.0-8.3); Neutrophils Percent Auto 64.8 % (45-73); Platelet Count 378 X10*3/uL (160-400); Red Blood Count 4.38 X10*6/uL (4.20-5.50); Red Cell Distribution Width 11.6 % (11.0-16.0); White Blood Count 8.2 X10*3/uL (4.8-10.8)
[2023-04-13 15:26] LABS: INTERNATIONAL NORM RATIO 0.9 (0.9-1.1); Prothrombin Time 11.2 SEC (11.1-13.3)
[2023-04-13 15:38] LABS: Alanine Aminotransferase 17 U/L (0-31); Albumin Level 4.3 g/dL (3.5-5.0); Alkaline Phosphatase 107 U/L (39-117); Anion Gap 18 (12-20); Aspartate Amino Transferase 19 U/L (5-31); B Type Natriuretic Peptide < 10 pg/mL (<100); Bilirubin Total 0.5 mg/dL (0.0-1.0); Blood Urea Nitrogen 14 mg/dL (9-16); COVID-19 Test Positive (Negative); Calcium 9.7 mg/dL (8.4-10.2); Carbon Dioxide 22 mmol/L (22-29); Chloride 98 mmol/L (96-108); Creatinine Clr Calc Pharmacy 55.2; Estimated Glomerular Filt Rate > 60; Glucose Random 86 mg/dL (60-115); IDNOW Serial# 08D9AD1C; Magnesium 1.4 mg/dL (1.6-2.6); Potassium 3.4 mmol/L (3.3-5.1); Sodium 135 mmol/L (135-145); Total Protein 7.4 g/dL (6.5-8.0)
--- NOTE | 2023-04-13 15:38 | MHC.EDTECH ---
EKG TAKEN AND WAS READ BY PROVIDER ,BLOOD DRAWN ,COVID /FLU SWAB COLLECTED AND SENT TO LAB .
[2023-04-13 15:46] LABS: Troponin-I High Sensitivity < 2.7 ng/L (<3.5-17.0)
[2023-04-13 15:52] LABS: IDNOW Serial# BCCEAD1C; Influenza A Negative (Negative); Influenza B2 Negative (Negative)
[2023-04-13] MEDS: Benzonatate 100 MG CAPSULE 200 MG PO (19:01)
[2023-04-13] MEDS: Magnesium Oxide 400 MG TABLET PO (19:01)
[2023-04-13 19:03] VITALS: BP 127/53; PULSE 86; O2SAT 97
== END 2023-04-13 19:08 | disposition home or self-care (01) ==
PROVIDERS: Nurse Practitioner Family; Emergency Provider Internal Medicine; PCP Internal Medicine
DX: U07.1 COVID-19 (principal); R06.02 Shortness of breath; E11.9 Type 2 diabetes mellitus without complications; I10 Essential (primary) hypertension; E78.5 Hyperlipidemia, unspecified; K21.9 Gastro-esophageal reflux disease without esophagitis; Z87.891 Personal history of nicotine dependence; Z86.73 Personal history of transient ischemic attack (TIA), and cerebral infarction without residual deficits; Z79.84 Long term (current) use of oral hypoglycemic drugs; Z79.82 Long term (current) use of aspirin; Z79.899 Other long term (current) drug therapy
CPT/HCPCS: 71046; 80053; 83735; 83880; 84484; 85025; 85610; 87502; 87635; 93005; 99284

== ENCOUNTER → 2023-04-13 14:57 | Outpatient (BNV) | payer OTHER, SELFPAY | PROVIDERS: Emergency Provider Internal Medicine; PCP Internal Medicine; Visit Provider Internal Medicine Cardiovascular Disease | DX: R94.31 Abnormal electrocardiogram [ECG] [EKG] (principal); R07.9 Chest pain, unspecified | CPT/HCPCS: 93010 ==

== ENCOUNTER 2023-04-18 15:20 | Outpatient (AMB) | payer OTHER, SELFPAY ==
--- NOTE | 2023-04-18 15:26 | MHC.PC.OV ---
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 Required: No Accompanied by: Sister Allergies No Known Allergies [No Known Allergies*] Allergy (Verified 04/18/23 15:33) Medication List - Last Reconciled 04/18/23 by Soo Robertson MD alum-mag hydroxide-simeth 200-200-20 mg/5 mL (Maalox Advanced) 10 mL PO Q6H PRN amlodipine 10 mg PO DAILY 90 days aspirin (Adult Aspirin Regimen) 81 mg PO DAILY 90 days atorvastatin 80 mg PO BEDTIME 90 days blood sugar diagnostic (FreeStyle Lite Strips) Use 1 test strip once a day blood-glucose meter (FreeStyle Lite Meter kit) As directed cane As directed diazepam 2 mg PO BID PRN escitalopram oxalate 10 mg PO BEDTIME 90 days glipizide 10 mg PO DAILY hydrochlorothiazide 25 mg PO DAILY 90 days incontinence pad, liner, disp Use 1 pad three times a day as needed lancets (FreeStyle Lancets) Use 1 lancet once a day lisinopril 40 mg PO DAILY 90 days lorazepam (Ativan) 0.5 mg PO TID PRN metformin 1,000 mg PO BID 90 days omeprazole 20 mg PO DAILY 90 days sitagliptin phosphate 100 mg PO DAILY 90 days tramadol 50 mg PO BID PRN underpads (Bed Underpads) Use 2 bed underpads at bedtime as needed Tobacco use date assessed: 12/17/22 Fall risk assessment: No Falls in past year Last assessed Fall Risk: 04/18/23 Dental Screening Dental Screen Date: 04/18/23 Did you have a dental visit in the last 12 months?: No Did you have a dental problem in the last 6 months where you did not have access to dental care?: No Was dental information given to patient?: Patient has dentist HPI HPI Comments History of Present Illness Details This is a 72-year-old female with diabetes mellitus type 2, hypertension, dyslipidemia, CVA, mild depression and GERD that comes today accompanied by sister complaining of some confusion that has been present for over 3 months. A1c very close to goal. Blood pressure stable. Last LDL was within goal. On aspirin for secondary prophylaxis of CVA. Depression stable with medications. GERD still present with omeprazole and has hypo magnesemia most likely secondary to PPIs. I will replace omeprazole to famotidine. Magnesium will be supplemented. Labs will be repeated in 7-10 days. [facility] Medical History (Updated 04/18/23 @ 16:10 by Soo Robertson MD) Insomnia DIOMEDES (generalized anxiety disorder) Mild depression CVA (cerebral vascular accident) GERD (gastroesophageal reflux disease) Dyslipidemia Diabetes mellitus Essential hypertension Surgical History No pertinent past surgical history Family History Father Stroke Mother No problems noted. Family/Other Hypertension Social History Housing: Apartment Alcohol intake: never Patient Tobacco Use Status: Former Tobacco user Tobacco use type: Cigarette e-Cigarette/Vaping Use: Never Used Second Hand Smoke Exposure: No Advance Directives Date on File: 12/21/21 service: No Current occupational status: disabled Cognitive needs: No Hearing needs: No Vision needs: No Questionnaire Thrive Questionnaire Date Thrive assessed: 12/17/22 DIOMEDES-7 AMB Questionnaire DIOMEDES-7 Date DIOMEDES - 7 assessed: 12/17/22 Source: Developed by Drs. Ayush Macdonald, Karol Martinez, Saud Markham and colleagues, with an educational mili from [employer]. Review of Systems Const All systems reviewed & are unremarkable except as noted in HPI and below Eyes Reports no additional complaints, Denies change in vision and Denies other visual disturbances Card Denies chest pain at rest, Denies chest pain with activity, Denies edema, Denies irregular heart rhythm, Denies claudication, Denies dyspnea, Denies dyspnea on exertion, Denies orthopnea, Denies paroxysmal nocturnal dyspnea and Denies slow heart rate Resp Denies cough, Denies dyspnea and Denies dyspnea on exertion GI Denies abdominal pain, Denies change in bowel habits, Denies excessive flatus, Denies nausea and Denies vomiting Denies urinary incontinence, Denies urinary hesitancy and Denies urinary urgency Musc Reports abnormal gait, Denies atrophy, Denies deformity and Denies limited range of motion Skin/Breast Denies bleeding lesions, Denies changing lesions and Denies rash Neuro Reports abnormal gait, Reports confusion, Reports lack of coordination and Reports focal weakness Psych Reports confusion Physical exam (Primary Care) Vital Signs: Last Vital Signs BP 140/70 H 04/18/23 15:27 BMI result Body Mass Index 26.0 Tobacco/Smoking Status: Tobacco use Status Tobacco use date assessed 12/17/22 04/18/23 15:26 Patient Tobacco Use Status Former Tobacco user 04/18/23 15:26 Tobacco use type Cigarette 04/18/23 15:26 e-Cigarette/Vaping Use Never Used 04/18/23 15:26 Thrive Assessment: Date of Thrive Assessment Date Thrive assessed 12/17/22 04/18/23 15:26 Const General: confusion Orientation/consciousness: confusion Limitations: ambulation with cane Eyes General: appearance normal, both eyes and all related structures Eyelids: Yes eyelids normal Conjunctivae: conjunctivae normal Neck Neck: Yes normal visual inspection and Yes supple Resp Effort & Inspection: normal respiratory effort Auscultation: clear to auscultation bilaterally Cardio Jugular venous distension: no JVD Rate: regular rate Rhythm: regular rhythm Heart sounds: Murmur heart sound present Neuro General: confusion Speech: Expressive aphasia present Motor exam (neuro): Abnormal motor strength present (1/5 right upper limb) Office Procedures Flu Questionnaire Does the patient have a severe egg allergy?: No Results AMB Hemoglobin A1c AMB Hemoglobin A1c 7.1 % Last Edit by FIDENCIO Castro on 04/18/23 15:42 Immunizations flu vacc [id number] 6mos up(PF) 60 mcg(15 mcgx4)/0.5 mL IM syringe Performing Provider: Soo Robertson MD [facility] [place] [facility] Documented (not given) by: FIDENCIO Castro on 04/18/23 15:52 Reason Not Given: Not Given Results Reviewed Results Reviewed: Laboratory Last Values Hgb A1c (Clinic) 7.1 % (4.0-6.0) H 04/18/23 15:41 Assessment and Plan Assessment & Plan (1) Diabetes mellitus: Code(s): E11.9 - Type 2 diabetes mellitus without complications Qualifiers: Diabetes mellitus type: type 2 Diabetes mellitus [facility] insulin use: without rodent exterminator use Diabetes mellitus complication status: with hyperglycemia Qualified Code(s): E11.65 - Type 2 diabetes mellitus with hyperglycemia Plan: Continue metformin and glipizide. A1c goal is equal or less than 7%. (2) Dyslipidemia: Code(s): E78.5 - Hyperlipidemia, unspecified Plan: Continue statins. LDL goal is less than 70. (3) Essential hypertension: Code(s): I10 - Essential (primary) hypertension Plan: Continue amlodipine, lisinopril and hydrochlorothiazide. Blood pressure goal is equal or less than 130/80. 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 (5) Mild depression: Code(s): F32.0 - Major depressive disorder, single episode, mild Plan: Continue escitalopram. (6) GERD (gastroesophageal reflux disease): Code(s): K21.9 - Gastro-esophageal reflux disease without esophagitis Qualifiers: Esophagitis presence: esophagitis presence not specified Qualified Code(s): K21.9 - Gastro-esophageal reflux disease without esophagitis Plan: Discontinue omeprazole. Start famotidine. Orders: Orders AMB Hemoglobin A1c Today E11.9 - Type 2 diabetes mellitus without complications Magnesium Today E83.42 - Hypomagnesemia Thyroid Stimulating Hormone Today R41.0 - Disorientation, unspecified Vitamin B12 and Folate Today E53.8 - Deficiency of other specified B group vitamins MR head/brain wo/w con Today R41.0 - Disorientation, unspecified Influenza [id number] Immunization Today Z23 - Encounter for immunization UA CC w/rflx Micro + Cult Today R30.0 - Dysuria Complete Blood Count Auto Diff Today K92.1 - Melena Referrals Gastroenterology Referral K92.1 - Melena Medications: New famotidine 20 mg PO BEDTIME 90 days 90 tabs 0RF magnesium sulfate 100 mg PO BID 10 days 20 caps 0RF Discontinued omeprazole Discontinued Reason: Patient Completed Course 20 mg PO DAILY 90 days 90 caps 3RF K21.9 - Gastro-esophageal reflux disease without esophagitis Coding Level of Care Code Est Pt Level 4 (95150) Diagnoses Type 2 diabetes mellitus with hyperglycemia, without long-term current use of insulin E11.65 Diabetes mellitus type: type 2 Diabetes mellitus [facility] insulin use: without rodent exterminator use Diabetes mellitus complication status: with hyperglycemia Dyslipidemia E78.5 Essential hypertension I10 Cerebrovascular accident (CVA) due to embolism of left posterior cerebral artery I63.432 CVA mechanism: embolism Precerebral and cerebral artery: posterior cerebral artery Laterality of affected vessel: left Mild depression F32.0 Gastroesophageal reflux disease, unspecified whether esophagitis present K21.9 Esophagitis presence: esophagitis presence not specified Time Spent (min) 23
[2023-04-18 15:27] VITALS: BP 140/70; BMI 26.0
== END 2023-04-18 15:52 | disposition home or self-care (01) ==
PROVIDERS: PCP Internal Medicine; Visit Provider Internal Medicine
DX: E11.65 Type 2 diabetes mellitus with hyperglycemia (principal); I63.432 Cerebral infarction due to embolism of left posterior cerebral artery; F32.0 Major depressive disorder, single episode, mild; E78.5 Hyperlipidemia, unspecified; I10 Essential (primary) hypertension; K21.9 Gastro-esophageal reflux disease without esophagitis
CPT/HCPCS: 83036; 99214

== ENCOUNTER 2023-05-17 08:36 | Outpatient (REF) | payer OTHER, SELFPAY ==
[2023-05-17 10:13] LABS: Alanine Aminotransferase 14 U/L (0-31); Albumin Level 4.5 g/dL (3.5-5.0); Alkaline Phosphatase 99 U/L (39-117); Anion Gap 16 (12-20); Aspartate Amino Transferase 24 U/L (5-31); Bilirubin Total 0.4 mg/dL (0.0-1.0); Blood Urea Nitrogen 10 mg/dL (9-16); Calcium 10.7 mg/dL (8.4-10.2); Carbon Dioxide 31 mmol/L (22-29); Chloride 101 mmol/L (96-108); Cholesterol 164 mg/dL (<200); Estimated Glomerular Filt Rate > 60; Glucose Fasting 140 mg/dL (60-99); HDL Cholesterol 42 mg/dL (>40); LDL Cholesterol Calculated 58 mg/dL (<100); Magnesium 1.6 mg/dL (1.6-2.6); Sodium 144 mmol/L (135-145); Total Protein 7.5 g/dL (6.5-8.0); Triglycerides 322 mg/dL (<150)
[2023-05-17 10:20] LABS: Thyroid Stimulating Hormone 0.43 uIU/mL (0.32-4.0); Vitamin D 25-OH Total 24.1 ng/mL (>30)
== END 2023-05-17 08:37 | disposition home or self-care (01) ==
LOC: HO.LAB 08:36
PROVIDERS: PCP Internal Medicine; Visit Provider Internal Medicine
DX: I10 Essential (primary) hypertension (principal); E53.8 Deficiency of other specified B group vitamins; K92.1 Melena; E55.9 Vitamin D deficiency, unspecified; E78.5 Hyperlipidemia, unspecified; R41.0 Disorientation, unspecified
CPT/HCPCS: 36415; 80053; 80061; 82306; 82607; 82746; 83735; 84443; 85025

== ENCOUNTER 2023-06-06 08:40 | Outpatient (REF) | payer OTHER, SELFPAY | END 2023-06-06 08:41 | disposition home or self-care (01) | LOC: HO.MRI 08:40 | PROVIDERS: PCP Internal Medicine; Visit Provider Internal Medicine | DX: Z13.89 Encounter for screening for other disorder (principal) ==

== ENCOUNTER 2023-06-12 11:13 | Outpatient (AMB) | payer OTHER, SELFPAY ==
--- NOTE | 2023-06-12 11:14 | MHC.OFFVIS ---
Intake Vital Signs 06/12/23 11:15 Height 5 ft 2 in Weight 146 lb BMI 26.7 BP 158/72 H Blood Pressure Location Lt brachial Position Sitting Pulse 80 Intake Visit Reasons: Melena Intake Note: New consult for Melena. Patient cc: rectal bleeding, abdominal pain come and go, acid reflex and some diarrhea on and off. Communication Coordinator Required: No Accompanied by: Family/Other Allergies No Known Allergies [No Known Allergies*] Allergy (Verified 06/12/23 11:28) HPI Melena HPI Details 72-year-old female with past medical history of CVA, right hemiplegia, hyperkalemia, insomnia, DIOMEDES, depression, GERD, dyslipidemia, diabetes, hypertension is here today for initial consultation. Patient was sent to us by her PCP for evaluation of blood in his stool. Patient had episode of blood in her stool few times back in March. No episodes before and no further episodes after. Patient denies melena, hematochezia, unintentional weight loss or ribbon like stools. Normal H&H and MCV on 05/17/2023. Patient reports occasional dyspepsia without dysphagia or odynophagia. Patient reports abdominal bloating. Patient reports occasional loose stools then being constipated. Patient had incomplete colonoscopy in [address] Siddiqui. Colonography was done after, moderate amount of stool noted, no polyps, redundant left side of her colon. Patient reports occasional left lower and left upper quadrant discomfort. Patient was on omeprazole which was stopped due to low magnesium levels. Patient was started on Pepcid. Patient currently is on magnesium supplement low-dose 250 mg daily. [facility] Medical History CVA (cerebral vascular accident) Diabetes mellitus Dyslipidemia Essential hypertension DIOMEDES (generalized anxiety disorder) GERD (gastroesophageal reflux disease) Insomnia Mild depression Surgical History No pertinent past surgical history Family History Father Stroke Mother No problems noted. Family/Other Hypertension Social History Housing: Apartment Alcohol intake: never Patient Tobacco Use Status: Former Tobacco user Tobacco use type: Cigarette e-Cigarette/Vaping Use: Never Used Second Hand Smoke Exposure: No Advance Directives Date on File: 12/21/21 service: No Current occupational status: disabled Cognitive needs: No Hearing needs: No Vision needs: No Review of Systems Const Denies weight gain and Denies weight loss ENT Reports no additional complaints, Denies dysphagia and Denies odynophagia Card Reports no additional complaints Resp Reports no additional complaints GI Denies abdominal pain, Denies belching, Denies melena, Denies bloating, Denies change in bowel habits, Denies dysphagia, Denies excessive flatus, Denies dyspepsia, Denies heartburn, Denies diarrhea, Reports loose stools (Occasional), Denies nausea, Denies odynophagia and Denies vomiting Reports no additional complaints Musc Reports no additional complaints Neuro Reports no additional complaints Psych Reports no additional complaints Endo Reports no additional complaints Physical Exam Vital Signs: Last Vital Signs Pulse 80 06/12/23 11:15 BP 158/72 H 06/12/23 11:15 BMI result Body Mass Index 26.7 Const Other: Patient is nonverbal, history of CVA General: healthy appearing, no acute distress and well developed Nutritional Appearance: well nourished Resp Effort & Inspection: normal respiratory effort, able to speak in complete sentences, no tracheal deviation and symmetric chest movement Auscultation: clear to auscultation bilaterally Cardio Rate: regular rate GI Inspection: Yes normal to inspection and No distended Palpation (GI): Soft to palpation, not firm, nontender and No hepatosplenomegaly present Auscultation: normal bowel sounds General: Yes no CVA tenderness Back/Spine/Pelvis Back: no CVA tenderness Skin General skin exam: elasticity normal, turgor normal and dry skin Psych Appearance: grossly normal Mental Status: mental status grossly normal Results Reviewed Results Reviewed: Laboratory Tests 05/17/23 08:48 Hgb 13.0 Hct 37.7 MCV 96.9 Assessment & Plan Assessment & Plan (1) Blood in stool: Code(s): K92.1 - Melena (2) GERD (gastroesophageal reflux disease): Code(s): K21.9 - Gastro-esophageal reflux disease without esophagitis Qualifiers: Esophagitis presence: esophagitis presence not specified Qualified Code(s): K21.9 - Gastro-esophageal reflux disease without esophagitis (3) Postprandial abdominal bloating: Code(s): R14.0 - Abdominal distension (gaseous) (4) Postprandial epigastric pain: Code(s): R10.13 - Epigastric pain (5) Diarrhea: Code(s): R19.7 - Diarrhea, unspecified Qualifiers: Diarrhea type: functional diarrhea Qualified Code(s): K59.1 - Functional diarrhea (6) Constipation: Code(s): K59.00 - Constipation, unspecified Qualifiers: Constipation type: slow transit constipation Qualified Code(s): K59.01 - Slow transit constipation Plan Patient will start taking Benefiber to help her bulk stools. Patient has redundant colon as noted on her colonoscopy and colonography and most likely is not emptying her bowels completely, hence diarrhea. Patient can also take docusate sodium to help her eliminate her stools. Patient was encouraged to increase fluid intake and activity to promote better bowel motility. Patient can continue taking famotidine at bedtime. Avoid dietary triggers and late night snacking. Staying upright for minimum 3 hours after meals discussed with patient. Patient will be started on Nexium. I will see her in 5 weeks, sooner on as needed basis. Patient is agreeable to this plan and verbalizes understanding of instructions. She was given the opportunity to ask questions and all questions answered. Thank you for allowing me to participate in her care. Medications: New wheat dextrin (Benefiber Clear Sugar Free(dextrin)) mix into at least 4 oz water or juice before administering 1 packet PO DAILY 28 ea 5RF K59.01 - Slow transit constipation docusate sodium 200 mg (2 x 100 mg) PO BEDTIME 180 caps 3RF K59.00 - Constipation, unspecified esomeprazole magnesium (Nexium) 40 mg PO DAILY 30 caps 2RF K21.9 - Gastro-esophageal reflux disease without esophagitis Discontinued tramadol Discontinued Reason: Doctor's Order 50 mg PO BID PRN 5 tabs 0RF pain Coding Level of Care Code New Pt Level 4 (79083) Diagnoses Blood in stool K92.1 Gastroesophageal reflux disease, unspecified whether esophagitis present K21.9 Esophagitis presence: esophagitis presence not specified Postprandial abdominal bloating R14.0 Postprandial epigastric pain R10.13 Functional diarrhea K59.1 Diarrhea type: functional diarrhea Slow transit constipation K59.01 Constipation type: slow transit constipation Time Spent (min) 45 Comment 30 minutes spent with patient and additional 15 minutes spent reviewing her records
[2023-06-12 11:15] VITALS: BP 158/72; PULSE 80; BMI 26.7
== END 2023-06-12 11:53 | disposition home or self-care (01) ==
PROVIDERS: PCP Internal Medicine; Visit Provider Nurse Practitioner Family
DX: K92.1 Melena (principal); K21.9 Gastro-esophageal reflux disease without esophagitis; R14.0 Abdominal distension (gaseous); R10.13 Epigastric pain; K59.1 Functional diarrhea; K59.01 Slow transit constipation
CPT/HCPCS: 99204

== ENCOUNTER → 2023-06-12 11:13 | Outpatient (BNVA) | payer OTHER, SELFPAY | PROVIDERS: PCP Internal Medicine; Visit Provider Nurse Practitioner Family | DX: K92.1 Melena (principal); K21.9 Gastro-esophageal reflux disease without esophagitis; R14.0 Abdominal distension (gaseous); R10.13 Epigastric pain; R19.7 Diarrhea, unspecified; K59.01 Slow transit constipation | CPT/HCPCS: 99202 ==

== ENCOUNTER 2023-07-17 09:55 | Outpatient (AMB) | payer OTHER, SELFPAY ==
--- NOTE | 2023-07-17 10:13 | MHC.OFFVIS ---
Intake Vital Signs 07/17/23 10:16 Height 5 ft 2 in Weight 146 lb 13.246 oz BMI 26.9 BP 164/67 H Blood Pressure Location Lt brachial Position Sitting Pulse 82 Intake Visit Reasons: 5 week follow up Intake Note: Patient is seen in office for 5 weeks follow up visit, following constipation. 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 P narcisa was sent to us by her PCP for evaluation of blo od in his stool. Patient had episod e of blood in her stool few times ba ck in March. N o episodes before and no further epi sodes after. Paulette ent denies melena, hematochezia, uni ntentional weight loss or ribbon lik e stools. Normal H&H and MCV on 05/17. Patient re ports occasional d yspepsia without d ysphagia or odynop hagia. Patient re ports abdominal bl oating. Patient r eports occasional loose stools then being constipated. Patient had inco mplete colonoscopy in 2017 done by Forrest Siddiqui. [place] nography was done after, moderate am ount of stool note d, no polyps, redu ndant left side of her colon. Patie nt reports occasio nal left lower and left upper quadra nt discomfort. Pa jaclyn was on omepr azole which was st opped due to low m agnesium levels. Patient was starte d on Pepcid. Paulette ent currently is o n magnesium supple ment low-dose 250 mg daily. ASSESSMENT AND PLAN Blood in stool GERD (gastroesophageal reflux disease) Postprandial abdominal bloating Postprandial epigastric pain Diarrhea Constipation Plan Patient will start taking Benefiber to help her bulk stools. Patient has redundant colon as noted on her colonoscopy and colonography and most likely is not emptying her bowels completely, hence diarrhea. Patient can also take docusate sodium to help her eliminate her stools. Patient was encouraged to increase fluid intake and activity to promote better bowel motility. Patient can continue taking famotidine at bedtime. Avoid dietary triggers and late night snacking. Staying upright for minimum 3 hours after meals discussed with patient. Patient will be started on Nexium. I will see her in 5 weeks, sooner on as needed basis. Patient is agreeable to this plan and verbalizes understanding of instructions. She was given the opportunity to ask questions and all questions answered. ? Thank you for allowing me to participate in her care. Medications New wheat dextrin (Benefiber Clear Sugar Free(dextrin)) mix into at least 4 oz water or juice before administering 1 packet PO DAILY 28 ea 5RF K59.01 docusate sodium 200 mg (2 x 100 mg) PO BEDTIME 180 caps 3RF K59.00 esomeprazole magnesium (Nexium) 40 mg PO DAILY 30 caps 2RF K21.9 TODAY'S VISIT: Patient is here today for follow-up. Patient will be sent for colonoscopy, as mentioned above redundant colon and unable to empty her bowels. Patient is taking Colace and magnesium and is moving her bowels daily twice a day. Patient does feel like she is emptying her bowels completely. States that Nexium is helping her with reflux. Patient denies any dyspepsia, dysphagia or odynophagia. Patient denies any melena, hematochezia, unintentional weight loss or ribbon like stools. Patient denies any issues with anesthesia in the past. No history of sleep apnea. On low-dose aspirin. Overall patient reports that she has feel been feeling better. Patient is nonverbal so her daughter is doing of the talking for her. However patient is alert and oriented. Patient denies any cardiac or respiratory symptoms. [facility] Medical History CVA (cerebral vascular accident) Diabetes mellitus Dyslipidemia Essential hypertension DIOMEDES (generalized anxiety disorder) GERD (gastroesophageal reflux disease) Insomnia Mild depression Surgical History No pertinent past surgical history Family History Father Stroke Mother No problems noted. Family/Other Hypertension Social History Housing: Apartment Alcohol intake: never Patient Tobacco Use Status: Former Tobacco user Tobacco use type: Cigarette e-Cigarette/Vaping Use: Never Used Second Hand Smoke Exposure: No Advance Directives Date on File: 12/21/21 service: No Current occupational status: disabled Cognitive needs: No Hearing needs: No Vision needs: No Review of Systems Const Denies weight gain and Denies weight loss ENT Reports no additional complaints, Denies dysphagia and Denies odynophagia Card Reports no additional complaints Resp Reports no additional complaints GI Denies abdominal pain, Denies belching, Denies melena, Denies bloating, Denies change in bowel habits, Denies dysphagia, Denies excessive flatus, Denies dyspepsia, Denies heartburn, Denies diarrhea, Denies loose stools, Denies nausea, Denies odynophagia and Denies vomiting Musc Reports no additional complaints Neuro Reports no additional complaints Psych Reports no additional complaints Endo Reports no additional complaints Physical Exam Vital Signs: Last Vital Signs Pulse 82 07/17/23 10:16 BP 164/67 H 07/17/23 10:16 BMI result Body Mass Index 26.9 Const Other: Patient is nonverbal, history of CVA General: healthy appearing, no acute distress and well developed Nutritional Appearance: well nourished Resp Effort & Inspection: normal respiratory effort, able to speak in complete sentences, no tracheal deviation and symmetric chest movement Auscultation: clear to auscultation bilaterally Cardio Rate: regular rate GI Inspection: Yes normal to inspection and No distended Palpation (GI): Soft to palpation, not firm, nontender and No hepatosplenomegaly present Auscultation: normal bowel sounds General: Yes no CVA tenderness Back/Spine/Pelvis Back: no CVA tenderness Skin General skin exam: elasticity normal, turgor normal and dry skin Psych Appearance: grossly normal Mental Status: mental status grossly normal Assessment & Plan Assessment & Plan (1) Blood in stool: Code(s): K92.1 - Melena (2) GERD (gastroesophageal reflux disease): Code(s): K21.9 - Gastro-esophageal reflux disease without esophagitis Qualifiers: Esophagitis presence: esophagitis presence not specified Qualified Code(s): K21.9 - Gastro-esophageal reflux disease without esophagitis (3) Postprandial abdominal bloating: Code(s): R14.0 - Abdominal distension (gaseous) (4) Postprandial epigastric pain: Code(s): R10.13 - Epigastric pain (5) Diarrhea: Code(s): R19.7 - Diarrhea, unspecified Qualifiers: Diarrhea type: functional diarrhea Qualified Code(s): K59.1 - Functional diarrhea (6) Constipation: Code(s): K59.00 - Constipation, unspecified Qualifiers: Constipation type: slow transit constipation Qualified Code(s): K59.01 - Slow transit constipation Plan Continue current regimen stool softeners. Patient was encouraged to increase fluid intake and activity to promote better bowel motility. What to expect before during and after procedure discussed patient and her daughter who help with the prep. Patient is on low-dose aspirin. Denies any cardiac or respiratory symptoms. Importance of clear liquid diet day before procedure stressed with patient and her daughter. I will see patient after the procedure, sooner on as needed basis. Both patient and her daughter are agreeable to this plan and verbalize understanding of instructions. They were given the opportunity to ask questions and all questions answered. Thank you for allowing me participate in her care Medications: New bisacodyl (Dulcolax (bisacodyl)) take 4 tabs at noon the day before your colonoscopy 20 mg (4 x 5 mg) PO ONCE 1 day 4 tabs 0RF Z12.11 - Encounter for screening for malignant neoplasm of colon polyethylene glycol 3350 (Miralax) As directed by gastroenterology [facility] at [facility] 238 grams PO ONCE 238 grams 0RF Z12.11 - Encounter for screening for malignant neoplasm of colon Discontinued wheat dextrin (Benefiber Clear Sugar Free(dextrin)) mix into at least 4 oz water or juice before administering Discontinued Reason: Patient no longer taking 1 packet PO DAILY 28 ea 5RF K59.01 - Slow transit constipation Coding Level of Care Code Est Pt Level 3 (75596) Diagnoses Blood in stool K92.1 Gastroesophageal reflux disease, unspecified whether esophagitis present K21.9 Esophagitis presence: esophagitis presence not specified Postprandial abdominal bloating R14.0 Postprandial epigastric pain R10.13 Functional diarrhea K59.1 Diarrhea type: functional diarrhea Slow transit constipation K59.01 Constipation type: slow transit constipation Time Spent (min) 30 Comment 20 minutes spent with patient and additional 10 minutes spent reviewing her records
[2023-07-17 10:16] VITALS: BP 164/67; PULSE 82; BMI 26.9
== END 2023-07-17 11:37 | disposition home or self-care (01) ==
PROVIDERS: PCP Internal Medicine; Visit Provider Nurse Practitioner Family
DX: K92.1 Melena (principal); K21.9 Gastro-esophageal reflux disease without esophagitis; R14.0 Abdominal distension (gaseous); R10.13 Epigastric pain; K59.1 Functional diarrhea; K59.01 Slow transit constipation
CPT/HCPCS: 99213

== ENCOUNTER → 2023-07-17 09:55 | Outpatient (BNVA) | payer OTHER, SELFPAY | PROVIDERS: PCP Internal Medicine; Visit Provider Nurse Practitioner Family | DX: K92.1 Melena (principal); K21.9 Gastro-esophageal reflux disease without esophagitis; K59.1 Functional diarrhea; K59.01 Slow transit constipation; R14.0 Abdominal distension (gaseous); R10.13 Epigastric pain | CPT/HCPCS: 99212 ==

== ENCOUNTER 2023-08-21 10:28 | Outpatient (AMB) | payer OTHER, SELFPAY ==
--- NOTE | 2023-08-21 10:35 | A.OFFPC_ITS ---
Vital Signs 08/21/23 10:36 Height 5 ft 2 in Weight 145 lb BMI 26.5 BP 142/90 H Blood Pressure Location Lt brachial Position Sitting Intake Visit Reasons: BP- see comments Intake Note: Patient here follow up bp, dm Vp Transportation Required: No Accompanied by: Daughter Allergies No Known Allergies [No Known Allergies*] Allergy (Verified 08/21/23 10:55) Medication List - Last Reconciled 08/21/23 by Soo Robertson MD alum-mag hydroxide-simeth 200-200-20 mg/5 mL (Maalox Advanced) 10 mL PO Q6H PRN amlodipine 10 mg PO DAILY 90 days aspirin (Adult Aspirin Regimen) 81 mg PO DAILY 90 days atorvastatin 80 mg PO BEDTIME 90 days bisacodyl (Dulcolax (bisacodyl)) 20 mg (4 x 5 mg) PO ONCE 1 day blood sugar diagnostic (FreeStyle Lite Strips) Use 1 test strip once a day blood-glucose meter (FreeStyle Lite Meter kit) As directed cane As directed diazepam 2 mg PO BID PRN docusate sodium 200 mg (2 x 100 mg) PO BEDTIME escitalopram oxalate 10 mg PO BEDTIME 90 days esomeprazole magnesium (Nexium) 40 mg PO DAILY famotidine 20 mg PO BEDTIME 90 days glipizide 10 mg PO DAILY hydrochlorothiazide 25 mg PO DAILY 90 days incontinence pad, liner, disp Use 1 pad three times a day as needed lancets (FreeStyle Lancets) Use 1 lancet once a day lisinopril 40 mg PO DAILY 90 days lorazepam (Ativan) 0.5 mg PO TID PRN [magnesium sulfate 1 tab PO DAILY 90 days] magnesium sulfate 100 mg PO BID 10 days metformin 1,000 mg PO BID 90 days polyethylene glycol 3350 (Miralax) 238 grams PO ONCE sitagliptin phosphate 100 mg PO DAILY 90 days underpads (Bed Underpads) Use 2 bed underpads at bedtime as needed Tobacco use date assessed: 08/21/23 Fall risk assessment: No Falls in past year Last assessed Fall Risk: 08/21/23 Dental Screening Dental Screen Date: 08/21/23 Did you have a dental visit in the last 12 months?: No Did you have a dental problem in the last 6 months where you did not have access to dental care?: No Was dental information given to patient?: Patient declined HPI HPI Comments History of Present Illness Details This is a 73-year-old female with hypertension, diabetes mellitus type 2, dyslipidemia, cerebrovascular accident in 2004 with right hemiplegia as residual deficits and mild major depression that comes today accompanied by daughter for follow-up on her conditions. Blood pressure elevated today and she just took her medications. Blood pressure will be recheck by nurse navigator in 3 weeks. A1c within goal. LDL within goal. On aspirin for secondary prophylaxis of cerebrovascular accident. She walks with a cane for gait stability and has abnormal speech due to her CVA. Denies any chest pain or shortness of breath. Mild major depression markedly improved with escitalopram. [facility] Medical History (Updated 04/18/23 @ 16:10 by Soo Robertson MD) Insomnia DIOMEDES (generalized anxiety disorder) Mild depression CVA (cerebral vascular accident) GERD (gastroesophageal reflux disease) Dyslipidemia Diabetes mellitus Essential hypertension Surgical History No pertinent past surgical history Family History Father Stroke Mother No problems noted. Family/Other Hypertension Social History Housing: Apartment Alcohol intake: never Patient Tobacco Use Status: Former Tobacco user Tobacco use type: Cigarette e-Cigarette/Vaping Use: Never Used Second Hand Smoke Exposure: No Advance Directives Date on File: 12/21/21 service: No Current occupational status: disabled Cognitive needs: Yes Hearing needs: No Vision needs: No Questionnaire PHQ-9 Over the last 2 weeks, how often have you been bothered by any of the following problems? 1. Little interest or pleasure in doing things: not at all 2. Feeling down, depressed, or hopeless: several days 3. Trouble falling or staying asleep, or sleeping too much: several days 4. Feeling tired or having little energy: not at all 5. Poor appetite or overeating: several days 6. Feeling bad about yourself - or that you are a failure or have let yourself or your family down: not at all 7. Trouble concentrating on things, such as reading the newspaper or watching television: not at all 8. Moving or speaking so slowly that other people could have noticed. Or the opposite - being so fidgety or restless that you have been moving around a lot more than usual: several days 9. Thoughts that you would be better off or of hurting yourself in some way: not at all Total score: 4 Depression Screening Interpretation: Negative Depression Screening Done: Yes 43381 - PHQ-9 Billing: Yes Source: Developed by Drs. Ayush Macdonald, Karol Martinez, Saud Markham and colleagues, with an educational mili from [employer]. Thrive Questionnaire Date Thrive assessed: 08/21/23 I am a: Patient What is your living situation today?: I have a steady place to live Within the past 12 months, did the food you bought not last and you didn't have the money to get more?: Never true Within the past 12 months, did you worry whether your food would run out before you got money to buy more?: Never true Do you have trouble paying for medicines?: No Do you have trouble getting transportation to medical appointments?: No Do you have trouble paying your heating and electricity bill?: No Do you have trouble taking care of your child, family member or friend?: No Do you have trouble with day-to-day activities such as bathing, preparing meals, shopping, managing finances, etc.?: Yes Are you currently unemployed and looking for a job?: No Are you interested in more education?: No Please select the resources that you would like help with: None Currently or been in a relationship where the following occur: no concerns reported THRIVE Score: 0 AUDIT C Alcohol Use Questionnaire (AUDIT-C) 1. How often do you have a drink containing alcohol?: Never Total Score: 0 DIOMEDES-7 AMB Questionnaire DIOMEDES-7 Date DIOMEDES - 7 assessed: 08/21/23 Feeling nervous, anxious, or on edge: 1 = Several days Not being able to stop or control worryin = Not at all Worrying too much about different things: 0 = Not at all Trouble relaxin = Not at all Being so restless that it is hard to sit still: 0 = Not at all Becoming easily annoyed or irritable: 0 = Not at all Feeling afraid as if something awful might happen: 0 = Not at all Total DIOMEDES-7 score (0-4 normal; 5-9 mild; 10-14 moderate; 15-21 severe): 1 Source: Developed by Drs. Ayush Macdonald, Karol Martinez, Saud Markham and colleagues, with an educational mili from [employer]. DIOMEDES-7 Assessment Billing DIOMEDES-7 Assessment Tool: DIOMEDES-7 Assessment 26584 Review of Systems Const All systems reviewed & are unremarkable except as noted in HPI and below Reports weakness Eyes Reports no additional complaints, Denies change in vision and Denies other visual disturbances Card Denies chest pain at rest, Denies chest pain with activity, Denies edema, Denies irregular heart rhythm, Denies claudication, Denies dyspnea, Denies dyspnea on exertion, Denies orthopnea, Denies paroxysmal nocturnal dyspnea and Denies slow heart rate Resp Denies cough, Denies dyspnea and Denies dyspnea on exertion Neuro Reports Abnormal speech present and Reports weakness Physical exam (Primary Care) Vital Signs: Last Vital Signs BP 142/90 H 08/21/23 10:36 BMI result Body Mass Index 26.5 Tobacco/Smoking Status: Tobacco use Status Tobacco use date assessed 08/21/23 08/21/23 10:46 Patient Tobacco Use Status Former Tobacco user 08/21/23 10:46 Tobacco use type Cigarette 08/21/23 10:46 e-Cigarette/Vaping Use Never Used 08/21/23 10:46 PHQ-9: PHQ-9 Score PHQ-9: Total score 4 08/21/23 10:46 Depression Screening Interpretation: Negative Thrive Assessment: Date of Thrive Assessment Date Thrive assessed 08/21/23 08/21/23 10:46 Currently or been in a relationship where the following occur: no concerns reported Resp Effort & Inspection: normal respiratory effort Auscultation: clear to auscultation bilaterally Cardio Jugular venous distension: no JVD Rate: regular rate Rhythm: regular rhythm Heart sounds: S1 normal heart sound present and S2 normal heart sound present Neuro Speech: Abnormal speech present Gait exam (Neuro): Assisted gait required (cane) Motor exam (neuro): Abnormal motor strength present (5/5 left side, 0/5 right upper limb, 4/5 right lower limb) Results AMB Hemoglobin A1c AMB Hemoglobin A1c 6.4 % Last Edit by FIDENCIO Castro on 08/21/23 10:4 7 Results Reviewed Results Reviewed: Laboratory Last Values Hgb A1c (Clinic) 6.4 % (4.0-6.0) H 08/21/23 10:35 Assessment and Plan Assessment & Plan (1) Diabetes mellitus: Code(s): E11.9 - Type 2 diabetes mellitus without complications Qualifiers: Diabetes mellitus type: type 2 Diabetes mellitus correction insulin use: without watermelon harvesting supervisor use Diabetes mellitus complication status: with hyperglycemia Qualified Code(s): E11.65 - Type 2 diabetes mellitus with hyperglycemia Plan: Continue metformin and Januvia. Discontinue glipizide. A1c goal is equal or less than 7%. (2) CVA (cerebral vascular accident): Comment: 2004 Code(s): I63.9 - Cerebral infarction, unspecified Qualifiers: CVA mechanism: embolism Precerebral and cerebral artery: posterior cerebral artery Laterality of affected vessel: left Qualified Code(s): I63.432 - Cerebral infarction due to embolism of left posterior cerebral artery Plan: Continue aspirin for secondary prophylaxis. Keep blood pressure within goal. Keep LDL within goal. Keep A1c within goal. (3) Mild depression: Code(s): F32.0 - Major depressive disorder, single episode, mild Plan: Continue escitalopram. (4) Essential hypertension: Code(s): I10 - Essential (primary) hypertension Plan: Continue lisinopril and amlodipine. Blood pressure goal is equal or less than 130/80. Recheck blood pressure with nurse navigator in 3 weeks. (5) Dyslipidemia: Code(s): E78.5 - Hyperlipidemia, unspecified Plan: Continue statins. LDL goal is less than 70. (6) Right hemiplegia: Code(s): G81.91 - Hemiplegia, unspecified affecting right dominant side Plan: Continue the use of a cane for gait stability. Orders: Orders AMB Hemoglobin A1c Today E11.65 - Type 2 diabetes mellitus with hyperglycemia Medications: Changed 2 From lorazepam (Ativan) 0.5 mg PO TID PRN 10 tabs 0RF anxiety To lorazepam (Ativan) 0.5 mg PO BID 1 day PRN 2 tabs 0RF anxiety Discontinued diazepam Discontinued Reason: Patient Completed Course 2 mg PO BID PRN 4 tabs 0RF muscle spasm glipizide Discontinued Reason: Patient Completed Course 10 mg PO DAILY 90 tabs 1RF Coding Level of Care Code Est Pt Level 4 (12270) Diagnoses Type 2 diabetes mellitus with hyperglycemia, without long-term current use of insulin E11.65 Diabetes mellitus type: type 2 Diabetes mellitus correction insulin use: without correction use Diabetes mellitus complication status: with hyperglycemia Cerebrovascular accident (CVA) due to embolism of left posterior cerebral artery I63.432 CVA mechanism: embolism Precerebral and cerebral artery: posterior cerebral artery Laterality of affected vessel: left Mild depression F32.0 Essential hypertension I10 Dyslipidemia E78.5 Right hemiplegia G81.91 Additional Codes DIOMEDES-7 Assessment Billing - DIOMEDES-7 Assessment Tool: DIOMEDES-7 Assessment 32940 ([id number]) Time Spent (min) 25
[2023-08-21 10:36] VITALS: BP 142/90; BMI 26.5
== END 2023-08-21 11:10 | disposition home or self-care (01) ==
PROVIDERS: PCP Internal Medicine; Visit Provider Internal Medicine
DX: E11.65 Type 2 diabetes mellitus with hyperglycemia (principal); I10 Essential (primary) hypertension; I69.351 Hemiplegia and hemiparesis following cerebral infarction affecting right dominant side; F32.0 Major depressive disorder, single episode, mild; E78.5 Hyperlipidemia, unspecified
CPT/HCPCS: 83036; 99214

== ENCOUNTER → 2024-01-27 08:32 | Day surgery (SDC) | payer OTHER, SELFPAY ==
[2024-01-27 13:52] VITALS: BP 158/69; PULSE 84; RESP 16; TEMP 36.7; O2SAT 98; BMI 27.0
--- NOTE | 2024-01-27 13:57 | MHC.SHP ---
Pre-Procedural Eval Section A - 24 Hr Update-Section A only Date of Service: 01/27/24 Section B - Complete if H&P > 30 days Chief Complaint: Encounter for screening for malignant neoplasm of Details of Present Illness: CVA (cerebral vascular accident) Diabetes mellitus Dyslipidemia Essential hypertension DIOMEDES (generalized anxiety disorder) GERD (gastroesophageal reflux disease) Insomnia Mild depression Surgical History No pertinent past surgical history Allergies: Allergies Allergy/AdvReac Type Severity Reaction Status Date / Time No Known Allergies Allergy Verified 08/21/23 10:55 [No Known Allergies*] Plan I have reviewed the history and physical and performed a pertinent physical examination on my patient. No changes have occurred unless specified. Pt was originally booked for 01/27 however showed up today. Plan was to accomodate her today but procedure could not be performed today to inavailability of OR staff. Pt frankie back to tmrw. Time Spent With Patient Time: Total time managing care of this patient today ____ minutes.
--- NOTE | 2024-01-27 14:04 | HO.ANESPROP2 ---
HPI - Anesthesia Eval Consult details Narrative: colon screen [facility] Active Problems Active Problems: All Active Problems Blood in stool (Acute) Hypomagnesemia (Acute) Confusion (Acute) COVID-19 (Acute) Overflow stress urinary incontinence in female (Acute) Weight loss (Acute) Right hemiplegia (Acute) Postmenopausal (Acute) Physical exam (Acute) Hyperkalemia (Acute) Insomnia (Acute) DIOMEDES (generalized anxiety disorder) (Acute) Mild depression (Acute) CVA (cerebral vascular accident) (Acute) GERD (gastroesophageal reflux disease) (Acute) Dyslipidemia (Acute) Diabetes mellitus (Acute) Essential hypertension (Acute) Past Medical History Medical History Insomnia DIOMEDES (generalized anxiety disorder) Mild depression CVA (cerebral vascular accident) GERD (gastroesophageal reflux disease) Dyslipidemia Diabetes mellitus Essential hypertension Family History Family History Father Stroke Mother No problems noted. Family/Other Hypertension Family history of problems with anesthesia: No Surgical History Surgical History No pertinent past surgical history History of Problems with Anesthesia: No Social History Social History Housing: Apartment Are you a primary healthcare prof to a significant other at home: No Do you presently have visiting nurse or other home services: Yes Alcohol intake: never Patient Tobacco Use Status: Former Tobacco user Tobacco use type: Cigarette e-Cigarette/Vaping Use: Never Used Second Hand Smoke Exposure: No Use of substances other than those prescribed or required for medical reasons: No Have you been hit, kicked, punched, or otherwise hurt by someone within the past year? If so, by whom?: No Are you DNR?: No Advance Directives: No Advance Directives Information Provided: Yes Advance Directives Date on File: 12/21/21 Recently lost weight without trying: No service: No Current occupational status: disabled Cognitive needs: Yes Hearing needs: No Vision needs: No Meds Allergies Allergy/AdvReac Type Severity Reaction Status Date / Time No Known Allergies Allergy Verified 08/21/23 10:55 [No Known Allergies*] Exam Height,Weight and Vital Signs: Height 5 ft 2 in Weight 67.041 kg Last Vital Signs Temp 98.1 F 01/27/24 13:52 Pulse 84 01/27/24 13:52 Resp 16 01/27/24 13:52 BP 158/69 H 01/27/24 13:52 Pulse Ox 98 01/27/24 13:52 O2 Del Method Room Air 01/27/24 13:52 Airway Mallampati Class: II TM Dist: >3cm Neck ROM: Full Heart: rrr Lungs: cta Assessment and Plan Assessment Anesthesia Assessment: Anesthesia Plan Discussed and Chart Reviewed Final Anesthetic Review Family History of Problems with Anesthesia: No History of Problems with Anesthesia: No NPO: Yes ASA Class: III Final Preanesthetic Review: No Changes in Pt Med Stat, Meds/Allgs Chart Reviewed, Consent Obtained/Reviewed and Anes Risks/Benef Reviewed Patient Risk: Intermediate Procedure Risk: Low Anesthetic Plan Anesthetic Plan: MAC: Disposition: Standard PACU
[2024-01-27 14:10] LABS: Glucose, Whole Blood 113 mg/dL (60-115)
== END ==
PROVIDERS: PCP Student in an Organized Health Care Education/Training Program; Visit Provider Internal Medicine Gastroenterology
DX: Z12.11 Encounter for screening for malignant neoplasm of colon (principal); Z53.29 Procedure and treatment not carried out because of patient's decision for other reasons; E11.9 Type 2 diabetes mellitus without complications
CPT/HCPCS: 82947; J2704

== ENCOUNTER 2024-01-28 07:57 | Day surgery (SDC) | payer OTHER, SELFPAY ==
[2024-01-28 08:48] VITALS: BP 175/78; PULSE 83; RESP 16; TEMP 37.1; O2SAT 97
[2024-01-28 08:49] LABS: Glucose, Whole Blood 135 mg/dL (60-115)
--- NOTE | 2024-01-28 09:03 | P.OPN-COLO_ITS ---
Colonoscopy Operative Note Operative Note Date of Service: 01/28/24 Narrative: Procedure: Colonoscopy Indication: Diarrhea, rectal bleeding Endoscopist: Maira Bernabe MD Anesthesia Provider: Lindy Corral CRNA Anesthesia type: MAC Instrument: Olympus [id number] Consent: Indication, risks vs benefits, and alternatives were discussed with the patient who gave written informed consent to proceed. An process manufacturing engineer was utilized to assist with the consent. EKG, pulse, pulse oximetry and blood pressure were monitored throughout the procedure. Please see anesthesia flowsheet. Procedure: The patient was brought to the procedure room and placed in the left lateral decubitus position. IV medications were administered by the anesthesia provider in attendance. A digital rectal exam was performed which was abnormal due to finding of hemorrhoids. A distal attachment cap was affixed to the tip of the colonoscope which was then inserted through the anus and advanced through the colon to the cecum at 90 cm. Appendiceal orifice and ileocecal valve were identified. Mucosa was carefully examined under high definition white light as the instrument was slowly withdrawn in a retrograde panoramic fashion. Retroflexion was performed in rectum. The procedure was difficult and required repositioning and 2-person pressure to intubate the cecum. There were no immediate obvious complications. The quality of the prep was BBPS: 2+2+2 = adequate Withdrawal time 9 minutes. Limitations: No limitations. Findings: Mucosa: Normal to cecum. Cold forceps biopsies were taken from right and left side of the colon and sent for histology. Protruding lesions: * 1 sessile polyp of size 5 mm in descending colon. Cold snare polypectomy was performed. The polyp was completely removed and retrieved. * Large internal hemorrhoids with stigmata of recent bleeding. Excavated lesions: * Severe diverticulosis of whole colon. Impression: 1. Normal colon mucosa (biopsy) 2. Total of 1 polyp removed 3. Diverticulosis 4. External and internal hemorrhoids Recommendations: - Follow path results. - Repeat colonoscopy in 7-10 years if pt in good health.
[2024-01-28 10:08] VITALS: BP 105/50; PULSE 72; RESP 16; TEMP 36.1; O2SAT 98
[2024-01-28 10:23] VITALS: BP 138/62; PULSE 71; RESP 16; TEMP 36.2; O2SAT 98
== END 2024-01-28 11:12 | disposition home or self-care (01) ==
PROVIDERS: PCP Internal Medicine; Visit Provider Internal Medicine
PROC: 0DJD8ZZ Inspection of Lower Intestinal Tract, Via Natural or Artificial Opening Endoscopic (ICD-10-PCS; CPT 45378; principal; 2024-01-28 08:20)
DX: K92.1 Melena (principal); K63.5 Polyp of colon; K57.30 Diverticulosis of large intestine without perforation or abscess without bleeding; K64.8 Other hemorrhoids; K64.4 Residual hemorrhoidal skin tags; R19.7 Diarrhea, unspecified; E11.9 Type 2 diabetes mellitus without complications; I10 Essential (primary) hypertension; E78.5 Hyperlipidemia, unspecified; K21.9 Gastro-esophageal reflux disease without esophagitis; Z86.73 Personal history of transient ischemic attack (TIA), and cerebral infarction without residual deficits; Z79.82 Long term (current) use of aspirin; Z79.02 Long term (current) use of antithrombotics/antiplatelets; Z79.84 Long term (current) use of oral hypoglycemic drugs; Z79.899 Other long term (current) drug therapy
CPT/HCPCS: 45385; 45380; 82947; 88305

== ENCOUNTER → 2024-01-28 07:57 | Outpatient (BNV) | payer OTHER, SELFPAY | PROVIDERS: PCP Internal Medicine; Visit Provider Internal Medicine | DX: R19.7 Diarrhea, unspecified (principal); K62.5 Hemorrhage of anus and rectum; K63.5 Polyp of colon; K57.90 Diverticulosis of intestine, part unspecified, without perforation or abscess without bleeding; K64.8 Other hemorrhoids | CPT/HCPCS: 45380; 45385 ==

== ENCOUNTER 2024-02-21 14:03 | Outpatient (AMB) | payer OTHER, SELFPAY ==
--- NOTE | 2024-02-21 14:23 | A.OFFVIS_ITS ---
Vital Signs 02/21/24 14:24 Height 5 ft 2 in Weight 152 lb 1.903 oz BMI 27.8 BP 142/72 H Blood Pressure Location Lt brachial Position Sitting Pulse 76 Pulse Source Pulse Oximeter Pulse Oximetry (%) 96 Oxygen Delivery Method Room Air Intake Visit Reasons: S/P [place]; Dr. Bernabe Intake Note: Amaya presents in office today for a scheduled s/p FUV. CC; Pt had procedure with Dr. Bernabe on 01/28/2024. Pt is here to discuss the results of their procedure. Pt reports noticing melena intermittently with mild to moderate severity. Pt states that this was present prior to the procedure. Pt denies any known complications. Pt states that it did not happen today, but it was noticed yesterday. Special Needs Child Caregiver Required: Yes Special Needs Child Caregiver Services: Special Needs Child Caregiver Present Special Needs Child Caregiver Name: [id number] Niraj Information Interpreted: non-clinical & clinical Accompanied by: Sister Allergies No Known Allergies [No Known Allergies*] Allergy (Verified 02/21/24 14:24) HPI HPI S/P [place]; Dr. Bernabe: Details: LAST VISIT: Blood in stool GERD (gastroesophageal reflux disease) Postprandial abdominal bloating Postprandial epigastric pain Diarrhea Constipation Plan Continue current regimen stool softeners. Patient was encouraged to increase fluid intake and activity to promote better bowel motility. What to expect before during and after procedure discussed patient and her daughter who help with the prep. Patient is on low-dose aspirin. Denies any cardiac or respiratory symptoms. Importance of clear liquid diet day before procedure stressed with patient and her daughter. I will see patient after the procedure, sooner on as needed basis. Both patient and her daughter are agreeable to this plan and verbalize understanding of instructions. They were given the opportunity to ask questions and all questions answered. ? Thank you for allowing me participate in her care Medications New bisacodyl (Dulcolax (bisacodyl)) take 4 tabs at noon the day before your colonoscopy 20 mg (4 x 5 mg) PO ONCE 1 day 4 tabs 0RF Z12.11 polyethylene glycol 3350 (Miralax) As directed by gastroenterology department at [facility] 238 grams PO ONCE 238 grams 0RF Z12.11 Discontinued wheat dextrin (Benefiber Clear Sugar Free(dextrin)) mix into at least 4 oz water or juice before administering Discontinued Reason: Patient no longer taking 1 packet PO DAILY 28 ea 5RF K59.01 COLONOSCOPY Findings: Mucosa: Normal to cecum. Cold forceps biopsies were taken from right and left side of the colon and sent for histology. Protruding lesions: * 1 sessile polyp of size 5 mm in descending colon. Cold snare polypectomy was performed. The polyp was completely removed and retrieved. * Large internal hemorrhoids with stigmata of recent bleeding. Excavated lesions: * Severe diverticulosis of whole colon. Impression: 1. Normal colon mucosa (biopsy) 2. Total of 1 polyp removed 3. Diverticulosis 4. External and internal hemorrhoids Recommendations: - Follow path results. - Repeat colonoscopy in 7-10 years if pt in good health. PATHOLOGY: Diagnosis A. Colon, descending, polypectomy: Hyperplastic polyp. B. Colon, right side, biopsy: Colonic mucosa within normal limits; negative for active, chronic or microscopic colitis. C. Colon, left side, biopsy: Colonic mucosa within normal limits; negative for active, chronic or microscopic colitis TODAY'S VISIT: Patient is here today for follow-up and to discuss colonoscopy results. Patient is accompanied by her sister. Patient denies any ill effects from the prep, anesthesia or procedure itself. Patient was found to have hyperplastic polyp in descending colon. Large active hemorrhoids with stigmata of recent bleeding. Patient does admit that she bleeds occasionally when she is straining. Patient denies melena, hematochezia. Patient denies dyspepsia, dysphagia or odynophagia. Patient denies any GI concerning symptoms. Colonoscopy and biopsy results discussed with patient. [facility] Medical History Insomnia DIOMEDES (generalized anxiety disorder) Mild depression CVA (cerebral vascular accident) GERD (gastroesophageal reflux disease) Dyslipidemia Diabetes mellitus Essential hypertension Surgical History No pertinent past surgical history Family History Father Stroke Mother No problems noted. Family/Other Hypertension Social History Housing: Apartment Are you a primary director of managed care to a significant other at home: No Do you presently have visiting nurse or other home services: Yes Alcohol intake: never Patient Tobacco Use Status: Former Tobacco user Tobacco use type: Cigarette e-Cigarette/Vaping Use: Never Used Second Hand Smoke Exposure: No Advance Directives Date on File: 12/21/21 service: No Current occupational status: disabled Cognitive needs: Yes Hearing needs: No Vision needs: No Physical Exam Vital Signs: Last Vital Signs Pulse 76 02/21/24 14:24 BP 142/72 H 02/21/24 14:24 Pulse Ox 96 02/21/24 14:24 Oxygen Delivery Method Room Air 02/21/24 14:24 BMI result Body Mass Index 27.8 Assessment & Plan Assessment & Plan (1) Status post colonoscopy: Code(s): Z98.890 - Other specified postprocedural states (2) Internal bleeding hemorrhoids: Code(s): K64.8 - Other hemorrhoids Plan Colonoscopy in 10 years, sooner if clinically necessary. Large bleeding hemorrhoids. Patient was having couple episodes after colonoscopy with small blood after bowel movement. Patient will be given stool softener and Proctosol. Encouraged patient to do Sitz baths with Epsom salts as well. Follow-up in 6 months, sooner on as needed basis. She is agreeable to this plan and verbalizes understanding of instructions. She was given the opportunity to ask questions and all questions answered. Thank you for allowing me to participate in her care Medications: New hydrocortisone 2.5% (Proctosol HC) 1 appl IA BID-QID PRN 30 grams 2RF hemorrhoids K64.9 - Unspecified hemorrhoids Refilled docusate sodium 200 mg (2 x 100 mg) PO BEDTIME 180 caps 3RF K59.00 - Constipation, unspecified Coding Level of Care Code Est Pt Level 3 (84208) Diagnoses Status post colonoscopy Z98.890 Internal bleeding hemorrhoids K64.8 Time Spent (min) 25 Comment 15 minutes spent with patient and additional 10 minutes spent reviewing her records
[2024-02-21 14:24] VITALS: BP 142/72; PULSE 76; O2SAT 96; BMI 27.8
== END 2024-02-21 15:23 | disposition home or self-care (01) ==
PROVIDERS: PCP Internal Medicine; Visit Provider Nurse Practitioner Family
DX: Z98.890 Other specified postprocedural states (principal); K64.8 Other hemorrhoids
CPT/HCPCS: 99213

== ENCOUNTER → 2024-02-21 14:03 | Outpatient (BNVA) | payer OTHER, SELFPAY | PROVIDERS: PCP Internal Medicine; Visit Provider Nurse Practitioner Family | DX: K64.8 Other hemorrhoids (principal); K21.9 Gastro-esophageal reflux disease without esophagitis; K59.01 Slow transit constipation; K64.9 Unspecified hemorrhoids; Z71.2 Person consulting for explanation of examination or test findings; Z98.890 Other specified postprocedural states | CPT/HCPCS: 99212 ==

== ENCOUNTER 2024-11-10 07:45 | Outpatient (AMB) | payer OTHER, SELFPAY ==
--- OUTSIDE RECORDS SUMMARY | 2024-11-10 07:48 | XMS_ITS | Data Portability ---
Author Organization [employer] [place] [employer] [facility] Address [address] [place] [address] Care Team Providers Care Tube Former Operator Name Role Phone [facility]IMARY [facility] Referring Provider [phone] REJI YAN Primary Care Provider Assessment No assessment recorded. Plan of Treatment Reminders Order Date Submit Date Provider Last Modified By Organization Details Last Modified Time Details Appointments None record ed. Lab None record ed. Referral None record ed. Procedures None record ed. Surgeries None record ed. Imaging None record ed. Medication Orders None record ed. Patient TargetsNo targets recorded. Patient InstructionsNo instructions recorded. Reason for Referral None Reported. Medical Equipment None Reported. Medications Name Sig Start Date Stop Date Status Note LastModified by Organization Details LastModified Time medbox status USE DIRECTED active Not Available Not Available No t Available atorvastatin 80 mg tablet TAKE ONE TABLET EVERY EVENING FOR CHOLESTEROL active Not Available Not Available Not Available glipizide 10 mg tablet TAKE ONE TABLET EVERY MORNING (SUGAR) active Not Available Not Available No t Available aspirin 81 mg tablet,delay ed release TAKE ONE TABLET EVERY MORNING FOR HEART active Not Available Not Available No t Available amlodipine 10 mg tablet TAKE ONE TABLET EVERY MORNING FOR BLOOD PRESSURE active Not Available Not Available No t Available metformin 1,000 mg tablet TAKE ONE TABLET IN THE MORNING AND EVENING FOR SUGAR active Not Available Not Available No t Available omeprazole 20 mg capsule,nelly yed release TAKE ONE CAPSULE EVERY MORNING FOR STOMACH ACID active Not Available Not Available No t Available hydrochlorot hiazide 25 mg tablet TAKE ONE TABLET EVERY MORNING FOR BLOOD PRESSURE active Not Available Not Available No t Available lisinopril 40 mg tablet TAKE ONE TABLET EVERY MORNING FOR BLOOD PRESSURE active Not Available Not Available No t Available escitalopram 10 mg tablet TAKE ONE TABLET EVERY NIGHT AT BEDTIME MOOD active Not Available Not Available No t Available Januvia 50 mg tablet TAKE ONE TABLET BY MOUTH EVERY MORNING FOR SUGAR active Not Available Not Available No t Available Januvia 100 mg tablet TAKE ONE TABLET EVERY MORNING (SUGAR) active Not Available Not Available No t Available FreeStyle Lite Strips TEST BLOOD SUGAR ONCE DAILY active Not Available Not Available No t Available TRUEplus Lancets 33 gauge TEST BLOOD SUGAR ONCE DAILY active Not Available Not Available No t Available Vitals Date Recorded Heart rate Respiratory rate Oxygen saturation Oxygen saturation in Arterial blood by Pulse oximetry Body temperature Systolic blood pressure Diastolic blood pressure Provider Name and Address Organization Details Last Updated DateTime 3 86 /min 18 /min 96 % 96 % 98.1 [degF] 127 mm[Hg] 68 mm[Hg] Not Available [facility] - production 3 14:02:41 Social History None recorded. Functional Status None recorded. Mental Status None recorded. Family History Nothing Reported. Medical History No medical history recorded. Gynecological HistoryNo gynecological history recorded. Obstetrics History GPAL:G 0 P 0 0 0 0 Past Encounters Encounter ID Performer Location Encounter Start Date Encounter Closed Date Diagnosis/Indication Diagnosis SNOMED-CT Code Diagnosis ICD10 Code Diagnosis Note [id number] Ghulam Mendoza MD [facility] [address] [place] [id number] 04/13/2023 13:43:30 04/15/2023 10:26:27 Chest pain 37696026 R07.9 As noted, we were called to see this 72 yo F patient with mild-mod DM, hx CVA, regarding concerns of spontaneou s, sudden-ons et chest pain, which self resolved and was associated with SOB during exertion, though it's unclear if this was worse than baseline, as she is homebound. Evaluation in the field was performed by my restaurant managing partner colleague, as noted above, I provided real-time direction and supervisio n for this visit. The evaluation revealed normal VS, pain on palpation, but different, and normal VS other than residual deficits of remote CVA. EKG is poor quality but appears to show SR with long ND, atypical p morphology (e.g. V2), nl QRS, LVH, no ST elevation but possible QS morphology in V2 (could be lead placement) , some j-point elevation, and normal PRWP. Impression :Intermedi ate bordering on high risk patient for ACS p/w atypical chest pain also of intermedia te risk character. Even without troponin, HEART score is 6, therefore we favor ED referral. Discussed that a riskier but not entirely unreasonab le course would be to have her not present to ED but remain with family and be observed continuous ly, and call 911 if sx recur. If not, she should have stress test or other ischemia workup EDDI, and her PCP can likely arrange this. After some discussion , patient and family favor ED presentati on to evaluate for ACS. Plan:ED today, f/u as appropriat e Primary care, considerch caprice-in call next week. Dispositio n:We discussed the situation and I recommende d referral to the emergency department . This was based on concern for intermedia te to high risk of ACS. Health Concerns Section Related Observation LastModified by Organization Detai ls LastModified Time None Recorded Concern Status LastModified by Organization Details LastModified Time None Recorded Advance Directives Directive None Recorded Payers Insurance Date Sequence Insurance Name Policy Number Policy Perez Covered Member ID Perez Member ID Guarantor Name 11/01/2023 1 [facility] - DOS ON OR AFTER 2022 - DUAL ELIGIBLE - HALF-WAY OPTIONS AND ONE CARE (MEDICARE REPLACEMENT/ADV ANTAGE - HMO) [facility] [id number] [facility] Notes Date Note Type Note Provider Name and Address Organization Details Recorded Time 04/13/2023 text/html [facility] Nursing Assessment: Chief Complaints: Chest Pain Allergies: Unknown Comments: CG reports the member is having CP/SOB s/s started yesterday - Denies arm/jaw pain - Denies fever/chills - Denies N/V - Palpations - Member/CG declined ER treatment and are requesting as wellness check -Jo NGUYỄN .................. .................. .................. .................. .................. .................. .................. ............... [employer] Consultant Note From Juliane Rosario: Sent to evaluate pt c/o cp and sob since yesterday. Upon arrival, found pt in bed. Pt is awake and alert, airway open and patent, breathing regular. Through translation by patients daughter, pt is able to explain symptoms In full sentences, in no apparent distress. Pt reports that yesterday, when her sister left apartment, pt suddenly developed onset of chest pain/tightness and sob. Pt s daughter arrived to apt soon after and gave pt her lexapro, and pt reports relief of symptoms a few minutes later. No diaphoresis/near syncope/arm involvement with pain. Pt also reporting dizziness with head movement today, reports +hx of this in the past that usually resolves on its own in a few hours. PCP aware and recommended that pt take BGLs when this occurs. (+NIDDM) 2 hours ago, pt s BGL was 145. At rest, pt reports no symptoms or discomfort. Pt does have reproducible chest pain in lower sternum on palpation. Denies falls/trauma. Denies n/v/d, coates, back pain, near syncope, or other anginal equivalents. Skin is pink, warm, dry. Pt appears well. EKG obtained and uploaded to [facility], orthostatic VS performed and were negative. Consulted [facility] who recommended pt present to ER for possible cardiac r/o and further evaluation. Family agrees and pt will go to [facility]. .................. .................. .................. .................. .................. .................. .................. ............... Disposition: Fulfilled Ghulam Mendoza MD [address] [facility],[address], [place], [address], [facility] - [employer] 04/14/2023 14:21:35 OBGyn Episode No OBEpisode recorded.
--- OUTSIDE RECORDS SUMMARY | 2024-11-10 07:48 | XMS_ITS | Patient Health Record ---
Author Organization [facility] Address [address] [place] [address] Care Team Providers Care Wildlife Conservation Officer Name Role Phone Soo Syed Primary Care Provider Unavailab David Thrasher Jr Unavailable [phone] Reason For Referral No Information Medications Medication SIG (Take, Route, Frequency, Duration) Notes Start Date End Date Status tiZANidine HCl 4 MG TK 1 T PO TID PRN Oral for 90 Active PARoxetine HCl 20 MG TK 1 T PO QD Oral f or 90 Active Aspirin Low Dose 81 MG 1 tablet Orally O nce a day Active metFORMIN HCl 500 MG 1 tablet with a jose l Orally Once a day Active Oyster Shell Calcium + D 500-400 MG-UNIT 1 tablet with a meal Orally Once a day Active Loratadine 10 MG TK 1 T PO ONCE A DAY Oral for 30 Active Colyte with Flavor Packs 240 GM As direc wilman Orally Over the specified time. for 1 day(s) Active Omeprazole 20 MG TK 1 C PO BID Oral for 90 Active LORazepam 1 MG 1 tablet at bedtime as needed Orally Once a day Active hydroCHLOROthiazide 12.5 MG 1 capsule in the morning Orally Once a day Active glyBURIDE 2.5 MG 1 tablet with breakfast or the first main meal of the day Orally Once a day Active Simvastatin 20 MG 1 tablet in the evening Orally Once a day Active Lisinopril 40 MG 1 tablet Orally Once a day Active Social History Tobacco Use: Social History Observation Description Date Details (start date - stop date) Former Smoker NA - NA Tobacco Use/Smoking Question Answer Notes Patient is a former smoker How long has it been since you last smoked? > 10 years Alcohol Screen Question Answer Notes Did you have a drink containing alcohol in the p ast year? No Points 0 Interpretation Negative Problems Problem Type SNOMED Code ICD Code Onset Dates Problem Status W/U Status Risk Notes Problem 299987014 Colon cancer screening (Z12.11) Active confirmed Problem 630803884 Long-term use of aspirin therapy (Z79.82) Active confirmed Problem 429209247 group home (current) use of oral hypoglycemic drugs (Z79.84) Active confirmed Plan Of Treatment Future Test Test Name Order Date COLONOSCOPY 01/17/2018 Insurance Providers Payer Name Payer Address Payer Phone Subscriber Number Group Number Insured Name Patient Relationship to Insured Coverage Start Date Coverage End Date [facility] [address] [place] [address] [id number] RADHA GAMBLE Self - patient is the insured Medicare of [place] [employer] [address] [place] [address] [id number] RADHA GAMBLE Self - patient is the insured Medical (General) History Medical History History ICD Code stroke 2006 diabetes mellitus type 2 hypertension hypercholesterolemia cerebrovascular accident with R paresis urinary incontinence GERD Diverticulosis Surgical History Surgery Date(Month/Year) surgery for a stroke
--- NOTE | 2024-11-10 07:54 | A.OFFPC_ITS ---
Vital Signs 11/10/24 07:55 Height 5 ft 2 in Weight 147 lb BMI 26.9 BP 148/76 H Blood Pressure Location Lt brachial Position Sitting Intake Visit Reasons: Med. Review- needs A1C Party Plan Salesperson Required: No Accompanied by: Daughter Allergies No Known Allergies (No Known Allergies*) Allergy (Verified 11/10/24 08:14) Medication List - Last Reconciled 11/10/24 by Soo Robertson MD amlodipine 10 mg PO DAILY 90 days aspirin (Adult Aspirin Regimen) 81 mg PO DAILY 90 days atorvastatin 80 mg PO BEDTIME 90 days blood sugar diagnostic (FreeStyle Lite Strips) Use 1 test strip once a day blood-glucose meter (FreeStyle Lite Meter kit) As directed cane As directed docusate sodium 200 mg (2 x 100 mg) PO BEDTIME escitalopram oxalate 10 mg PO BEDTIME 90 days esomeprazole magnesium 40 mg PO QAM famotidine 20 mg PO BEDTIME 90 days hydrochlorothiazide 25 mg PO DAILY 90 days hydrocortisone 2.5% (Proctosol HC) 1 appl LA BID-QID PRN incontinence pad, liner, disp Use 1 pad three times a day as needed lancets (FreeStyle Lancets) Use 1 lancet once a day lisinopril 40 mg PO DAILY 90 days metformin 1,000 mg PO BID 90 days sitagliptin phosphate (Januvia) 100 mg PO QAM 90 days underpads (Bed Underpads) Use 2 bed underpads at bedtime as needed Tobacco use date assessed: 11/10/24 Fall risk assessment: No Falls in past year Last assessed Fall Risk: 11/10/24 Dental Screening Dental Screen Date: 11/10/24 Did you have a dental visit in the last 12 months?: No Did you have a dental problem in the last 6 months where you did not have access to dental care?: No Was dental information given to patient?: Patient declined HPI HPI Comments History of Present Illness Details The patient is a 74-year-old female presenting with management of diabetes, hypertension, and follow-up on the history of cerebrovascular accident. The patient has a history of diabetes mellitus, managed with Metformin 1000 mg twice daily and Januvia 100 mg daily. She also has hypertension, for which she takes Amlodipine 10 mg, Lisinopril 40 mg, and Hydrochlorothiazide. 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 She uses a cane for ambulation and has some difficulty with mobility due to dragging her leg slightly. The patient is on Atorvastatin 80 mg for hyperlipidemia. She has a history of depression with anxiety and insomnia, managed with Escitalopram. The patient reports gastroesophageal reflux disease, for which she takes Esomeprazole and Famotidine. She experiences urinary incontinence, managed with pads and liners. The patient has a history of constipation, managed with medication as needed. She reports memory loss and acknowledges awareness of this issue. There is a plan to conduct laboratory tests related to memory loss, including thyroid function and vitamin B12 levels. Preventative care measures discussed include the need for pneumonia and tetanus vaccinations, as well as a bone density screening. [facility] Medical History (Updated 11/10/24 @ 08:25 by Soo Robertson MD) Insomnia DIOMEDES (generalized anxiety disorder) Mild depression CVA (cerebral vascular accident) GERD (gastroesophageal reflux disease) Dyslipidemia Diabetes mellitus Essential hypertension Surgical History No pertinent past surgical history Family History Father Stroke Mother No problems noted. Family/Other Hypertension Social History Housing: Apartment Are you a primary care transition mgr to a significant other at home: No Do you presently have visiting nurse or other home services: Yes Alcohol intake: never Patient Tobacco Use Status: Former Tobacco user Tobacco use type: Cigarette e-Cigarette/Vaping Use: Never Used Second Hand Smoke Exposure: No Advance Directives Date on File: 12/21/21 service: No Current occupational status: disabled Cognitive needs: Yes Hearing needs: No Vision needs: No Questionnaire PHQ-9 Over the last 2 weeks, how often have you been bothered by any of the following problems? 1. Little interest or pleasure in doing things: nearly every day 2. Feeling down, depressed, or hopeless: not at all 3. Trouble falling or staying asleep, or sleeping too much: not at all 4. Feeling tired or having little energy: several days 5. Poor appetite or overeating: nearly every day 6. Feeling bad about yourself - or that you are a failure or have let yourself or your family down: not at all 7. Trouble concentrating on things, such as reading the newspaper or watching television: nearly every day 8. Moving or speaking so slowly that other people could have noticed. Or the opposite - being so fidgety or restless that you have been moving around a lot more than usual: not at all 9. Thoughts that you would be better off or of hurting yourself in some way: not at all Total score: 10 Depression Screening Interpretation: Positive Depression Screening Follow-up: Existing condition, In treatment and Follow-up Visit Requested Depression Screening Done: Yes 56822 - PHQ-9 Billing: Yes Source: Developed by Drs. Ayush Macdonald, Karol Martinez, Saud Markham and colleagues, with an educational mili from [employer]. Thrive Questionnaire Date Thrive assessed: 11/03/24 I am a: Parent/Caregiver What is your living situation today?: I have a steady place to live Within the past 12 months, did the food you bought not last and you didn't have the money to get more?: Never true Within the past 12 months, did you worry whether your food would run out before you got money to buy more?: Sometimes True Do you have trouble paying for medicines?: No Do you have trouble getting transportation to medical appointments?: No Do you have trouble paying your heating and electricity bill?: No Do you have trouble taking care of your child, family member or friend?: I choose not to answer this question Do you have trouble with day-to-day activities such as bathing, preparing meals, shopping, managing finances, etc.?: Yes Are you currently unemployed and looking for a job?: I choose not to answer this question Are you interested in more education?: No Please select the resources that you would like help with: None Currently or been in a relationship where the following occur: I choose not to answer THRIVE Score: 1 AUDIT C Alcohol Use Questionnaire (AUDIT-C) 1. How often do you have a drink containing alcohol?: Never Total Score: 0 Score Reviewed/Action Taken: No DIOMEDES-7 AMB Questionnaire DIOMEDES-7 Date DIOMEDES - 7 assessed: 11/10/24 Feeling nervous, anxious, or on edge: 1 = Several days Not being able to stop or control worryin = Not at all Worrying too much about different things: 0 = Not at all Trouble relaxin = Not at all Being so restless that it is hard to sit still: 0 = Not at all Becoming easily annoyed or irritable: 0 = Not at all Feeling afraid as if something awful might happen: 0 = Not at all Total DIOMEDES-7 score (0-4 normal; 5-9 mild; 10-14 moderate; 15-21 severe): 1 Source: Developed by Drs. Ayush Macdonald, Karol Martinez, Saud Markham and colleagues, with an educational mili from [employer]. DIOMEDES-7 Assessment Billing DIOMEDES-7 Assessment Tool: DIOMEDES-7 Assessment 71200 Review of Systems Const All systems reviewed & are unremarkable except as noted in HPI and below Card Denies chest pain at rest, Denies chest pain with activity, Denies edema, Denies irregular heart rhythm, Denies claudication, Denies dyspnea, Denies dyspnea on exertion, Denies orthopnea, Denies paroxysmal nocturnal dyspnea and Denies slow heart rate Resp Denies cough, Denies dyspnea and Denies dyspnea on exertion GI Denies abdominal pain, Denies change in bowel habits, Denies excessive flatus, Denies nausea and Denies vomiting Musc Reports abnormal gait Neuro Reports Abnormal speech present, Reports abnormal gait, Reports focal weakness and Reports memory loss Psych Reports memory loss Physical exam (Primary Care) Vital Signs: Last Vital Signs BP 148/76 H 11/10/24 07:55 BMI result Body Mass Index 26.9 Tobacco/Smoking Status: Tobacco use Status Tobacco use date assessed 11/10/24 11/10/24 08:00 Patient Tobacco Use Status Former Tobacco user 11/10/24 08:00 Tobacco use type Cigarette 11/10/24 08:00 e-Cigarette/Vaping Use Never Used 11/10/24 08:00 PHQ-9: PHQ-9 Score PHQ-9: Total score 10 11/10/24 08:42 Depression Screening Interpretation: Positive Depression Screening Follow-up: Existing condition, In treatment and Follow-up Visit Requested Thrive Assessment: Date of Thrive Assessment Date Thrive assessed 11/03/24 11/10/24 08:00 Currently or been in a relationship where the following occur: I choose not to answer Const Limitations: ambulation with cane Resp Effort & Inspection: normal respiratory effort Auscultation: clear to auscultation bilaterally Cardio Jugular venous distension: no JVD Rate: regular rate Rhythm: regular rhythm Heart sounds: S1 normal heart sound present and S2 normal heart sound present Neuro Speech: Abnormal speech present Motor exam (neuro): Abnormal motor strength present (3/5 right, 5/5 left) Results AMB Hemoglobin A1c AMB Hemoglobin A1c 6.8 % Last Edit by FIDENCIO Castro on 11/10/24 08:4 3 Immunizations pneumoc 20-bunny conj-dip cr(PF) 0.5 mL IM syringe Performing Provider: Soo Robertson MD Performing Location: [facility] Administered by: FIDENCIO Castro on 11/10/24 08:40 Dose Route Admin Location Dispensed Lot Number Expiration Date [employer] Bonder 0.5 mL IM Left Deltoid 0.5 mL [id number] 10/11/25 5494-8049-78 [employer] /[employer] Total Dispensed Waste 0.5 mL 0 % VIS Given Date VIS Provided VIS Publication Date 11/10/24 Single Vaccine 24 Eligibility Eligibility Date Funding Source Not VFC Eligible 11/10/24 Private Tenivac (PF) 5 Lf unit-2 Lf unit/0.5 mL intramuscular syringe Performing Provider: Soo Robertson MD Performing Location: [facility] Administered by: FIDENCIO Castro on 11/10/24 08:40 Dose Route Admin Location Dispensed Lot Number Expiration Date [employer] Bonder 0.5 mL IM Right Deltoid 0.5 mL [id number] 07/11/26 80384-837-39 [employer] Total Dispensed Waste 0.5 mL 0 % VIS Given Date VIS Provided VIS Publication Date 11/10/24 Single Vaccine 20 Eligibility Eligibility Date Funding Source Not VFC Eligible 11/10/24 Private Results Reviewed Results Reviewed: Laboratory Last Values Hgb A1c (Clinic) 6.8 % (4.0-6.0) H 11/10/24 08:16 Coding Level of Care Code Est Pt Level 4 (64510) Complex EM visit Add On G2211 Diagnoses Mild depression F32.0 Type 2 diabetes mellitus with hyperglycemia, without long-term current use of insulin E11.65 Diabetes mellitus type: type 2 Diabetes mellitus vermin exterminator insulin use: without vermin exterminator use Diabetes mellitus complication status: with hyperglycemia Essential hypertension I10 Dyslipidemia E78.5 Cerebrovascular accident (CVA) due to embolism of left posterior cerebral artery I63.432 CVA mechanism: embolism Precerebral and cerebral artery: posterior cerebral artery Laterality of affected vessel: left Right hemiplegia G81.91 Memory loss R41.3 Additional Codes DIOMEDES-7 Assessment Billing - DIOMEDES-7 Assessment Tool: DIOMEDES-7 Assessment 18255 ([id number]) PHQ-9 - 68797 - PHQ-9 Billing: Yes ([id number]) Time Spent (min) 24 Assessment & Plan Assessment & Plan (1) Mild depression: Code(s): F32.0 - Major depressive disorder, single episode, mild Category: Medical (2) Diabetes mellitus: Code(s): E11.9 - Type 2 diabetes mellitus without complications Category: Medical Qualifiers: Diabetes mellitus type: type 2 Diabetes mellitus vermin exterminator insulin use: without vermin exterminator use Diabetes mellitus complication status: with hyperglycemia Qualified Code(s): E11.65 - Type 2 diabetes mellitus with hyperglycemia (3) Essential hypertension: Code(s): I10 - Essential (primary) hypertension Category: Medical (4) Dyslipidemia: Code(s): E78.5 - Hyperlipidemia, unspecified Category: Medical (5) CVA (cerebral vascular accident): Comment: 2004 Code(s): I63.9 - Cerebral infarction, unspecified Category: Medical Qualifiers: CVA mechanism: embolism Precerebral and cerebral artery: posterior cerebral artery Laterality of affected vessel: left Qualified Code(s): I63.432 - Cerebral infarction due to embolism of left posterior cerebral artery (6) Right hemiplegia: Code(s): G81.91 - Hemiplegia, unspecified affecting right dominant side Category: Medical (7) Memory loss: Code(s): R41.3 - Other amnesia Category: Medical Plan The plan includes continuing current medications for diabetes, hypertension, and hyperlipidemia. The patient will receive pneumonia and tetanus vaccinations as part of preventative care. A bone density screening will be scheduled to assess osteoporosis risk. Memory loss will be further evaluated with laboratory tests, including thyroid function and vitamin levels. The patient will continue using pads and liners for urinary incontinence management. Referral to dermatology is planned for evaluation of a scalp lesion. Patient was informed and verbally consented to the use of an ambient scribe for clinic note documentation during this visit. Orders: Orders AMB Hemoglobin A1c Today E11.65 - Type 2 diabetes mellitus with hyperglycemia Vitamin D 25-OH Total Today E55.9 - Vitamin D deficiency, unspecified Lipid Panel Today E78.5 - Hyperlipidemia, unspecified Microalbumin, Random (w Creat) Today R80.9 - Proteinuria, unspecified Comprehensive [place]. Panel Fast Today E11.65 - Type 2 diabetes mellitus with hyperglycemia Thyroid Stimulating Hormone Today R41.3 - Other amnesia MR head/brain wo con Today G81.91 - Hemiplegia, unspecified affecting right dominant side, I63.432 - Cerebral infarction due to embolism of left posterior cerebral artery, R41.0 - Disorientation, unspecified, R41.3 - Other amnesia Td Immunization Today Z23 - Encounter for immunization MM tomosynthesis screening BI Today Z12.31 - Encounter for screening mammogram for malignant neoplasm of breast XR DEXA axial skeleton Today Z78.0 - Asymptomatic menopausal state Vitamin B12 and Folate Today E53.8 - Deficiency of other specified B group vitamins Complete Blood Count Auto Diff Today D64.9 - Anemia, unspecified Pneumococcal 20 Immunization Today Z23 - Encounter for immunization Medications: New alprazolam Take 45 minutes before MRI 0.5 mg PO DAILY 1 tab 0RF 1 day Refilled lancets (FreeStyle Lancets) Use 1 lancet once a day 100 ea 2RF E11.65 - Type 2 diabetes mellitus with hyperglycemia blood sugar diagnostic (FreeStyle Lite Strips) Use 1 test strip once a day 100 ea 2RF E11.65 - Type 2 diabetes mellitus with hyperglycemia blood-glucose meter (FreeStyle Lite Meter kit) As directed 1 ea 0RF E11.65 - Type 2 diabetes mellitus with hyperglycemia incontinence pad, liner, disp Use 1 pad three times a day as needed 90 ea 11RF N39.3 - Stress incontinence (female) (male), N39.490 - Overflow incontinence underpads (Bed Underpads) Use 2 bed underpads at bedtime as needed 100 ea 6RF N39.3 - Stress incontinence (female) (male), N39.490 - Overflow incontinence
[2024-11-10 07:55] VITALS: BP 148/76; BMI 26.9
== END 2024-11-10 08:34 | disposition home or self-care (01) ==
LOC: HO.HMCH 07:46
PROVIDERS: PCP Internal Medicine; Visit Provider Internal Medicine
DX: E11.65 Type 2 diabetes mellitus with hyperglycemia (principal); I63.432 Cerebral infarction due to embolism of left posterior cerebral artery; G81.91 Hemiplegia, unspecified affecting right dominant side; F32.0 Major depressive disorder, single episode, mild; I10 Essential (primary) hypertension; E78.5 Hyperlipidemia, unspecified; R41.3 Other amnesia; Z23 Encounter for immunization

== ENCOUNTER → 2024-11-10 07:45 | Outpatient (BNVA) | payer OTHER, SELFPAY | PROVIDERS: PCP Internal Medicine; Visit Provider Internal Medicine | DX: E11.9 Type 2 diabetes mellitus without complications (principal); I10 Essential (primary) hypertension; I69.351 Hemiplegia and hemiparesis following cerebral infarction affecting right dominant side; G47.00 Insomnia, unspecified; F41.9 Anxiety disorder, unspecified; F32.A Depression, unspecified; K21.9 Gastro-esophageal reflux disease without esophagitis; R32 Unspecified urinary incontinence; F32.0 Major depressive disorder, single episode, mild; E11.65 Type 2 diabetes mellitus with hyperglycemia; E78.5 Hyperlipidemia, unspecified; R41.3 Other amnesia; Z23 Encounter for immunization; Z79.84 Long term (current) use of oral hypoglycemic drugs | CPT/HCPCS: 83036; 90471; 90472; 90677; 90714; 96127; 99212 ==

== ENCOUNTER 2024-12-02 09:41 | Outpatient (REF) | payer OTHER, SELFPAY ==
--- NOTE | ~2024-12-02 | MR_ITS ---
CLINICAL HISTORY: R41.3 - Other amnesia; DISORIENTATION; RT HEMIPLEGIA CVA MR Brain without gadolinium Comparison: None provided Findings: No intra-axial mass or hemorrhage. No acute infarct. Chronic left MCA territory infarct. Right posterior frontal lobe encephalomalacia. No midline shift. No hydrocephalus. Periventricular and subcortical T2 white matter hyperintensities likely chronic small-vessel ischemic changes. Mildly increased T2 signal in the bilateral medial temporal lobes. Irregular flow void in the region of the right proximal MCA with blooming artifact on gradient echo image, possibly postsurgical change. The orbits are normal. The sinuses and mastoid air cells are clear. Two subcutaneous lesions in the left scalp measuring 1.8 x 1.2 and 1.4 x 1.8 cm. Signal characteristics are similar to the calvarium in these may be ossicles. IMPRESSION: 1. No acute infarct. 2. Chronic left MCA territory infarct. 3. Irregular flow void in right proximal MCA with blooming artifact, possibly postsurgical change. Correlate clinically. 4. Mildly increased T2 signal in the bilateral medial temporal lobes without associated restricted diffusion. This is nonspecific and can be seen in mesial temporal sclerosis and neurodegenerative diseases. This document has been electronically signed by: Blaire Kearney MD on 12/02/2024 22:48:46
--- OUTSIDE RECORDS SUMMARY | 2024-12-02 10:17 | XMS_ITS | Data Portability ---
Author Organization [employer] [place] [facility] Address [address] [place] [address] Care Team Providers Care Childcare Attendant Name Role Phone [facility] Referring Provider REJI YAN Primary Care Provider [phone] Assessment No assessment recorded. Plan of Treatment [...] blood by Pulse oximetry Body temperature Systolic And Diastolic Provider Name and Address Organization Details Last Updated DateTime 3 86 /min 18 /min 96 % 96 % 98.1 [degF] 127/68 mm[Hg] Not Available [facility] - production 3 [...] SNOMED-CT Code Diagnosis ICD10 Code Diagnosis Note [id number] Ghulam Mendoza MD Main - [facility] [address] [place] [id number] 04/13/2023 13:43:30 04/15/2023 10:26:27 Chest pain [id number] R07.9 As noted, we were called to see this 72 yo F patient with mild-mod DM, hx CVA, regarding concerns of spontaneou s, sudden-ons et chest pain, which self resolved and was associated with SOB during exertion, though it's unclear if this was worse than baseline, as she is homebound. Evaluation in the field was performed by my fund director colleague, as noted above, I provided real-time direction and supervisio n for this visit. The evaluation revealed normal VS, pain on palpation, but different, and normal VS other than residual deficits of remote CVA. EKG is poor quality but appears to show SR with long MT, atypical p morphology (e.g. V2), nl QRS, [...] Perez Member ID Guarantor Name 11/01/2023 1 [facility] - DOS ON OR AFTER 2022 - DUAL ELIGIBLE - [employer] OPTIONS AND ONE CARE (MEDICARE REPLACEMENT/ADV ANTAGE - HMO) Amaya Usama [id number] [facility] Notes Date Note Type Note Provider Name [...] .................. .................. .................. .................. .................. .................. ............... Police Commanding Officer Note From Juliane Rosario: Sent to evaluate [...] appears well. EKG obtained and uploaded to [employer], orthostatic VS performed and were negative. [facility]ed [facility] who recommended pt present to ER for possible cardiac r/o and further evaluation. Family agrees and pt will go to [facility]. .................. .................. .................. .................. .................. .................. .................. ............... Disposition: Fulfilled Ghulam Mendoza MD [address] [facility], [place], [address], [facility] [place] 04/14/2023 14:21:35 OBGyn Episode No OBEpisode recorded.
--- OUTSIDE RECORDS SUMMARY | 2024-12-02 10:17 | XMS_ITS | Patient Health Record ---
Author Organization [facility] Address [address] [place] [address] Care Team Providers Care Dumb Waiter Operator Name Role Phone Soo Syed Primary Care Provider Unavailab David Thrasher Jr Unavailable Reason For Referral No Information Medications Medication [...] Problem Status W/U Status Risk Notes Problem [id number] Colon cancer screening (Z12.11) Active confirmed Problem [id number] Long-term use of aspirin therapy (Z79.82) Active confirmed Problem [id number] manager long term care (current) use of oral hypoglycemic drugs (Z79.84) Active confirmed Plan Of Treatment Future Test Test Name Order Date COLONOSCOPY 01/17/2018 Insurance Providers Payer Name Payer Address Payer Phone Subscriber Number Group Number Insured Name Patient Relationship to Insured Coverage Start Date Coverage End Date [facility] [address] [place] [address] [id number] RADHA GAMBLE Self - patient is the insured Medicare of [place] [employer] [address] [place] [address] [id number] RADHA GAMBLE Self - patient is the insured Medical (General) History Medical History History ICD Code stroke 2006 diabetes mellitus type 2 hypertension hypercholesterolemia cerebrovascular accident with R paresis urinary incontinence GERD Diverticulosis Surgical History Surgery Date(Month/Year) surgery for a stroke
== END 2024-12-02 09:42 | disposition home or self-care (01) ==
LOC: HO.MRI 09:41
PROVIDERS: PCP Internal Medicine; Visit Provider Internal Medicine
DX: R41.3 Other amnesia (principal); R41.0 Disorientation, unspecified; G81.91 Hemiplegia, unspecified affecting right dominant side; I63.432 Cerebral infarction due to embolism of left posterior cerebral artery
CPT/HCPCS: 70551

== ENCOUNTER → 2024-12-02 09:41 | Outpatient (BNV) | payer OTHER, SELFPAY | PROVIDERS: PCP Internal Medicine; Visit Provider Radiology Diagnostic Radiology | DX: I63.512 Cerebral infarction due to unspecified occlusion or stenosis of left middle cerebral artery (principal) | CPT/HCPCS: 70551 ==

== ENCOUNTER 2025-03-17 09:48 | Outpatient (AMB) | payer OTHER, SELFPAY ==
--- NOTE | 2025-03-17 09:52 | MHC.PC.OV ---
Vital Signs 03/17/25 09:53 Height 5 ft 2 in Weight 146 lb BMI 26.7 BP 172/80 H Blood Pressure Location Lt brachial Position Sitting Respiration 18 Pulse 96 Pulse Source Pulse Oximeter Temp Source Temporal Artery Scan Pulse Oximetry (%) 97 Oxygen Delivery Method Room Air Intake Visit Reasons: 4 month Press Service Reader Required: No Accompanied by: Self / Same As Patient Allergies No Known Allergies (No Known Allergies*) Allergy (Verified 03/17/25 10:17) Medication List - Last Reconciled 03/17/25 by Soo Robertson MD alprazolam 0.5 mg PO DAILY 1 day amlodipine 10 mg PO DAILY 90 days aspirin (Adult Aspirin Regimen) 81 mg PO DAILY 90 days atorvastatin 80 mg PO BEDTIME 90 days blood sugar diagnostic (FreeStyle Lite Strips) Use 1 test strip once a day blood-glucose meter (FreeStyle Lite Meter kit) As directed cane As directed docusate sodium 200 mg (2 x 100 mg) PO BEDTIME escitalopram oxalate 10 mg PO BEDTIME 90 days esomeprazole magnesium 40 mg PO QAM famotidine 20 mg PO BEDTIME 90 days hydrochlorothiazide 25 mg PO DAILY 90 days hydrocortisone 2.5% (Proctosol HC) 1 appl SD BID-QID PRN incontinence pad, liner, disp Use 1 pad three times a day as needed lancets (FreeStyle Lancets) Use 1 lancet once a day lisinopril 40 mg PO DAILY 90 days metformin 1,000 mg PO BID 90 days sitagliptin phosphate (Januvia) 100 mg PO QAM 90 days underpads (Bed Underpads) Use 2 bed underpads at bedtime as needed Tobacco use date assessed: 03/17/25 Fall risk assessment: No Falls in past year Last assessed Fall Risk: 03/17/25 Dental Screening Dental Screen Date: 03/17/25 Did you have a dental visit in the last 12 months?: No Did you have a dental problem in the last 6 months where you did not have access to dental care?: No Was dental information given to patient?: No HPI HPI Comments History of Present Illness Details The patient is a 74-year-old female presenting for management of chronic conditions. She has a history of a stroke, which resulted in residual aphasia and right upper extremity weakness. A head MRI performed in the summer showed findings of the old stroke and nonspecific changes but family members continue to complain of memory loss. Her current medications include amlodipine 10 mg and hydrochlorothiazide 25 mg for hypertension, aspirin, atorvastatin, a medication for constipation, escitalopram for depression with anxiety, and esomeprazole with famotidine for acid reflux. She reportedly took her blood pressure medication this morning, but her blood pressure is very high today. She also has a history of diabetes in which A1c today was 6.5% and she will keep taking metformin and Januvia for this matter. [facility] Medical History (Updated 03/17/25 @ 10:31 by Soo Robertson MD) Insomnia DIOMEDES (generalized anxiety disorder) Mild depression CVA (cerebral vascular accident) GERD (gastroesophageal reflux disease) Dyslipidemia Diabetes mellitus Essential hypertension Surgical History No pertinent past surgical history Family History Father Stroke Mother No problems noted. Family/Other Hypertension Social History Housing: Apartment Are you a primary home health care provider to a significant other at home: No Do you presently have visiting nurse or other home services: Yes Alcohol intake: never Patient Tobacco Use Status: Former Tobacco user Tobacco use type: Cigarette e-Cigarette/Vaping Use: Never Used Second Hand Smoke Exposure: No Advance Directives Date on File: 12/21/21 service: No Current occupational status: disabled Cognitive needs: Yes Hearing needs: No Vision needs: No Questionnaire Thrive Questionnaire Date Thrive assessed: 11/03/24 I am a: Parent/Caregiver What is your living situation today?: I have a steady place to live Within the past 12 months, did the food you bought not last and you didn't have the money to get more?: Never true Within the past 12 months, did you worry whether your food would run out before you got money to buy more?: Sometimes True Do you have trouble paying for medicines?: No Do you have trouble getting transportation to medical appointments?: No Do you have trouble paying your heating and electricity bill?: No Do you have trouble taking care of your child, family member or friend?: I choose not to answer this question Do you have trouble with day-to-day activities such as bathing, preparing meals, shopping, managing finances, etc.?: Yes Are you currently unemployed and looking for a job?: I choose not to answer this question Are you interested in more education?: No Please select the resources that you would like help with: None Currently or been in a relationship where the following occur: I choose not to answer THRIVE Score: 1 DIOMEDES-7 AMB Questionnaire DIOMEDES-7 Date DIOMEDES - 7 assessed: 11/10/24 Source: Developed by Drs. Ayush Macdonald, Karol Martinez, Saud Markham and colleagues, with an educational mili from [employer]. Review of Systems Const All systems reviewed & are unremarkable except as noted in HPI and below Card Denies chest pain at rest, Denies chest pain with activity, Denies edema, Denies irregular heart rhythm, Denies claudication, Denies dyspnea, Denies dyspnea on exertion, Denies orthopnea, Denies paroxysmal nocturnal dyspnea and Denies slow heart rate Resp Denies cough, Denies dyspnea and Denies dyspnea on exertion Physical exam (Primary Care) Vital Signs: Last Vital Signs Pulse 96 03/17/25 09:53 Resp 18 03/17/25 09:53 BP 172/80 H 03/17/25 09:53 Pulse Ox 97 03/17/25 09:53 Oxygen Delivery Method Room Air 03/17/25 09:53 BMI result Body Mass Index 26.7 Tobacco/Smoking Status: Tobacco use Status Tobacco use date assessed 03/17/25 03/17/25 10:05 Patient Tobacco Use Status Former Tobacco user 03/17/25 09:53 Tobacco use type Cigarette 03/17/25 09:53 e-Cigarette/Vaping Use Never Used 03/17/25 09:53 Thrive Assessment: Date of Thrive Assessment Date Thrive assessed 11/03/24 03/17/25 09:53 Currently or been in a relationship where the following occur: I choose not to answer Resp Effort & Inspection: normal respiratory effort Auscultation: clear to auscultation bilaterally Cardio Jugular venous distension: no JVD Rate: regular rate Rhythm: regular rhythm Heart sounds: S1 normal heart sound present and S2 normal heart sound present Neuro Speech: Global aphasia present Gait exam (Neuro): Assisted gait required (cane) Motor exam (neuro): Abnormal motor strength present (5/5 left, 0/5 rue, 4/5 rle) Extrem General: Yes full ROM Office Procedures Flu Questionnaire Does the patient have a severe egg allergy?: No Does the patient have severe life threatening allergies?: No Does the patient have a fever or illness today?: No Has the patient ever had Guillain-[place] Syndrome?: No Has the patient ever had any past reaction to a flu shot?: No Results AMB Hemoglobin A1c AMB Hemoglobin A1c 6.5 % Last Edit by Karen Mohan CMA on 03/17/25 10:39 Immunizations Fluarix [id number] (PF) 45 mcg (15 mcg x 3)/0.5 mL IM syringe Performing Provider: Soo Robertson MD [facility] Administered by: Karen Mohan CMA on 03/17/25 10:32 Dose Route Admin Location Dispensed Lot Number Expiration Date NDC Traveling Secretary 0.5 mL IM Left Deltoid 0.5 mL [id number] 11/09/25 [id number] [employer] VIS Given Date VIS Provided VIS Publication Date 03/17/25 Single Vaccine 24 Eligibility Eligibility Date Funding Source Not [facility] Eligible 03/17/25 Private Coding Level of Care Code Est Pt Level 4 (05306) Complex EM visit Add On G2211 Diagnoses Cerebrovascular accident (CVA) due to embolism of left posterior cerebral artery I63.432 CVA mechanism: embolism Precerebral and cerebral artery: posterior cerebral artery Laterality of affected vessel: left Right hemiplegia G81.91 Cognitive impairment R41.89 Type 2 diabetes mellitus with hyperglycemia, without long-term current use of insulin E11.65 Diabetes mellitus complication status: with hyperglycemia Diabetes mellitus intermediate teacher insulin use: without intermediate teacher use Diabetes mellitus type: type 2 Essential hypertension I10 Dyslipidemia E78.5 Mild depression F32.0 DIOMEDES (generalized anxiety disorder) F41.1 Time Spent (min) 24 Assessment & Plan Assessment & Plan (1) CVA (cerebral vascular accident): Comment: 2004 Code(s): I63.9 - Cerebral infarction, unspecified Category: Medical Qualifiers: CVA mechanism: embolism Precerebral and cerebral artery: posterior cerebral artery Laterality of affected vessel: left Qualified Code(s): I63.432 - Cerebral infarction due to embolism of left posterior cerebral artery (2) Right hemiplegia: Code(s): G81.91 - Hemiplegia, unspecified affecting right dominant side Category: Medical (3) Cognitive impairment: Code(s): R41.89 - Other symptoms and signs involving cognitive functions and awareness Category: Medical (4) Diabetes mellitus: Code(s): E11.9 - Type 2 diabetes mellitus without complications Category: Medical Qualifiers: Diabetes mellitus complication status: with hyperglycemia Diabetes mellitus skilled nursing insulin use: without skilled nursing use Diabetes mellitus type: type 2 Qualified Code(s): E11.65 - Type 2 diabetes mellitus with hyperglycemia (5) Essential hypertension: Code(s): I10 - Essential (primary) hypertension Category: Medical (6) Dyslipidemia: Code(s): E78.5 - Hyperlipidemia, unspecified Category: Medical (7) Mild depression: Code(s): F32.0 - Major depressive disorder, single episode, mild Category: Medical (8) DIOMEDES (generalized anxiety disorder): Code(s): F41.1 - Generalized anxiety disorder Category: Medical Plan Plan 1. Essential (primary) hypertension I10 The patient presented with very high blood pressure despite reported adherence to amlodipine and hydrochlorothiazide. Medication management will be reassessed. 2. Type 2 diabetes mellitus without complications E11.9 HCC 19 An A1c test will be performed to assess glycemic control over the last three months. 3. Other sequelae of other cerebrovascular disease I69.898 A head MRI from the summer showed sequelae of an old stroke as well as nonspecific changes raising concern for a possible neurodegenerative process, such as multiple sclerosis. A non-urgent referral to neurology is recommended for further evaluation of these findings. 4. Other symptoms and signs involving cognitive functions and awareness R41.89 Refer to neurology. Orders: Orders Influenza [id number] Immunization Today Z23 - Encounter for immunization Lipid Panel Today E78.5 - Hyperlipidemia, unspecified Microalbumin, Random (w Creat) Today R80.9 - Proteinuria, unspecified Comprehensive [place]. Panel Fast Today E11.65 - Type 2 diabetes mellitus with hyperglycemia AMB Hemoglobin A1c Today Z13.9 - Encounter for screening, unspecified Referrals Neurology Referral G81.91 - Hemiplegia, unspecified affecting right dominant side, I63.432 - Cerebral infarction due to embolism of left posterior cerebral artery, R41.89 - Other symptoms and signs involving cognitive functions and awareness
[2025-03-17 09:53] VITALS: BP 172/80; PULSE 96; RESP 18; O2SAT 97; BMI 26.7
--- OUTSIDE RECORDS SUMMARY | 2025-03-17 11:07 | XMS_ITS | Patient Health Record ---
Author Organization [facility] Address [address] [place] [address] Care Team Providers Care Tile Decorator Name Role Phone Soo Syed Primary Care Provider Unavailab David Thrasher Jr Unavailable Reason For Referral No Information Medications Medication SIG (Take, Route, Frequency, Duration) Notes Start Date End Date Status tiZANidine HCl 4 MG TK 1 T PO TID PRN Oral; Duration: 90 Active PARoxetine HCl 20 MG TK 1 T PO QD Oral; Duration: 90 Active Aspirin Low Dose 81 MG 1 tablet Orally O nce a day Active metFORMIN HCl 500 MG 1 tablet with a jose l Orally Once a day Active Oyster Shell Calcium + D 500-400 MG-UNIT 1 tablet with a meal Orally Once a day Active Loratadine 10 MG TK 1 T PO ONCE A DAY Oral; Duration: 30 Active Colyte with Flavor Packs 240 GM As direc wilman Orally Over the specified time.; Duration: 1 day(s) Active Omeprazole 20 MG TK 1 C PO BID Oral; Duration: 90 Active LORazepam 1 MG 1 tablet [...] Problem Status W/U Status Risk Notes Problem Colon cancer screening (369355155) Colon cancer screening (Z12.11) Active confirmed Problem Long-term current use of antiplatelet drug (713263513164483 ) Long-term use of aspirin therapy (Z79.82) Active confirmed Problem Long-term current use of drug therapy (356619612) intermediate designer (current) use of oral hypoglycemic drugs (Z79.84) Active confirmed Plan Of Treatment Future Test Test Name Order Date COLONOSCOPY 01/17/2018 Insurance Providers Payer Name Payer Address Payer Phone Subscriber Number Group Number Insured Name Patient Relationship to Insured Coverage Start Date Coverage End Date [facility] [address] [place] [address] [id number] RADHA GAMBLE Self - patient is the insured Medicare of [place] [address] [place] [address] [id number] RADHA GAMBLE Self - patient is the insured Medical (General) History Medical History History ICD Code stroke 2006 diabetes mellitus type 2 hypertension hypercholesterolemia cerebrovascular accident with R paresis urinary incontinence GERD Diverticulosis Surgical History Surgery Date(Month/Year) surgery for a stroke
--- OUTSIDE RECORDS SUMMARY | 2025-03-17 11:07 | XMS_ITS | Data Portability ---
Author Organization [employer] [facility] Address [address] [place] [address] Care Team Providers Care Rn Sexual Assault Name Role Phone [facility] Referring Provider [phone] REJI YAN Primary Care Provider Assessment No [...] Diagnosis SNOMED-CT Code Diagnosis ICD10 Code Diagnosis IMO Codes Diagnosis Note [id number] Ghulam Mendoza MD Main - [facility] [address] [place] [phone] 04/13/2023 13:43:30 04/15/2023 10:26:27 Chest pain [id number] R07.9 As noted, we were called to see this 72 yo F patient with mild-mod DM, hx CVA, regarding concerns of spontaneou s, sudden-ons et chest pain, which self resolved and was associated with SOB during exertion, though it's unclear if this was worse than baseline, as she is homebound. Evaluation in the field was performed by my crop puller colleague, as noted above, I provided real-time direction and supervisio n for this visit. The evaluation revealed normal VS, pain on palpation, but different, and normal VS other than residual deficits of remote CVA. EKG is poor quality but appears to show SR with long SD, atypical p morphology (e.g. V2), nl QRS, [...] Perez Member ID Guarantor Name 11/01/2023 1 [facility] - DOS ON OR AFTER 2022 - DUAL ELIGIBLE - NURSING HOME OPTIONS AND ONE CARE (MEDICARE REPLACEMENT/ADV ANTAGE - HMO) Amaya Usama [id number] [facility] Notes Date Note Type Note [...] .................. .................. .................. .................. .................. .................. ............... Senior Qa Tester Note From Juliane Rosario: Sent to evaluate [...] appears well. EKG obtained and uploaded to [employer], orthostatic VS performed and were negative. [place] [facility] [place] recommended pt present to ER for possible cardiac r/o and further evaluation. Family agrees and pt will go to [place] [facility]. .................. .................. .................. .................. .................. .................. .................. ............... Disposition: Fulfilled Ghulam Mendoza MD [address] [facility],[address], [place], [address], [facility] [place] 04/14/2023 14:21:35 OBGyn Episode No OBEpisode recorded.
== END 2025-03-17 10:43 | disposition home or self-care (01) ==
LOC: HO.HMCH 09:49
PROVIDERS: PCP Internal Medicine; Visit Provider Internal Medicine
DX: I63.432 Cerebral infarction due to embolism of left posterior cerebral artery (principal); G81.91 Hemiplegia, unspecified affecting right dominant side; R41.89 Other symptoms and signs involving cognitive functions and awareness; E11.65 Type 2 diabetes mellitus with hyperglycemia; I10 Essential (primary) hypertension; E78.5 Hyperlipidemia, unspecified; F32.0 Major depressive disorder, single episode, mild; F41.1 Generalized anxiety disorder; Z23 Encounter for immunization; Z13.9 Encounter for screening, unspecified

== ENCOUNTER → 2025-03-17 09:48 | Outpatient (BNVA) | payer OTHER, SELFPAY | PROVIDERS: PCP Internal Medicine; Visit Provider Internal Medicine | DX: E11.65 Type 2 diabetes mellitus with hyperglycemia (principal); I69.351 Hemiplegia and hemiparesis following cerebral infarction affecting right dominant side; R41.89 Other symptoms and signs involving cognitive functions and awareness; I10 Essential (primary) hypertension; E78.5 Hyperlipidemia, unspecified; F32.0 Major depressive disorder, single episode, mild; F41.1 Generalized anxiety disorder; Z23 Encounter for immunization; Z79.84 Long term (current) use of oral hypoglycemic drugs; Z79.899 Other long term (current) drug therapy | CPT/HCPCS: 83036; 90471; 90656; 99212 ==

== ENCOUNTER 2025-03-23 12:14 | Outpatient (REF) | payer OTHER, SELFPAY ==
--- NOTE | ~2025-03-23 | MM_ITS ---
EXAMINATION: DXA BONE DENSITY AXIAL HISTORY: Z78.0 - Asymptomatic menopausal state TECHNIQUE: Dabble DB Dual energy absorptiometry (DEXA) of the lumbar spine, total left hip, and femoral neck was performed. COMPARISON: Comparison is made with the prior examination dated December 2021. FINDINGS: The bone mineral density of the lumbar spine is 1.164 g/cm2, corresponding to a T-score of -0.1, and a Z-score of 1.5. This is indicative of normal bone mineral density. This represents a BMD change of -2% compared to the prior exam. This is not statistically significant. The bone mineral density of the left total hip is 0.761 g/cm2, corresponding to a T-score of -2.0, and a Z-score of -0.4. This is indicative of osteopenia. This represents a BMD change of -8.2% compared to the prior exam. This is statistically significant. The bone mineral density of the left femoral neck is 0.749 g/cm2, corresponding to a T-score of -2.1, and a Z-score of -0.3. This is indicative of osteopenia. This represents a BMD change of -5.4% compared to the prior exam. Unknown clinical significance. FRACTURE RISK: The FRAX index suggests a ten year probability of major osteoporotic fracture of 7.5%, and of hip fracture 1.7%. MM/XR DEXA axial skeleton IMPRESSION: Based on bone mineral density, and according to World Health Organization (WHO) criteria, the diagnosis is consistent with osteopenia based on lowest T score of -2.1 in the left femoral neck. Bone density is decreased compared to most recent exam December 2021. Treatment Recommendations: NOF guidelines recommend consideration for treatment in postmenopausal women and men age 50 and older presenting with the following: -A hip or vertebral (clinical or morphometric) fracture. -T-score less than or equal to -2.5 at the femoral neck or spine after appropriate evaluation to exclude secondary causes. -Low bone mass at the hip or spine and a 10-year fracture probability by FRAX of greater than or equal to 3% for hip fracture or greater than or equal to 20% for major osteoporotic fracture based on the [place] adapted WHO algorithm. Other Recommendations: All treatment decisions require clinical judgment and consideration of individual patient factors, including patient preferences, comorbidities, previous drug use, risk factors not captured in the FRAX model (e.g. frailty, falls, vitamin D deficiency, increased bone turnover, interval significant decline in bone density) and possible under or overestimation of fracture risk by FRAX. Additional medical evaluation for secondary cause of low bone mineral density may be appropriate. FUTURE SCAN RECOMMENDATION: People with diagnosed cases of osteoporosis or at high risk for fracture should have regular bone mineral density tests. For patients eligible for Medicare, routine testing is allowed once every 2 years. The testing frequency can be increased to one year for patients who have rapidly progressing disease, those who are receiving or discontinuing medical therapy to restore bone mass, or have additional risk factors. Statistically, 68% of repeat scans fall within 1 SD (+/- 0.010 g/cm2 for AP spine L1-L4) and 1 SD (+/- 0.012 g/cm2 for femur total) FRAX is a trademark of the [employer]'s [place] for Metabolic Bone Disease, a World Health Organization (WHO) Collaborating Center. Electronically signed by: Scarlett Rojas MD 03/23/2025 02:06 PM [facility]
--- NOTE | ~2025-03-23 | MM_ITS ---
EXAMINATION: MM SCREENING DIGITAL BREAST TOMOSYNTHESIS, BILATERAL CLINICAL INFORMATION: Screening. Asymptomatic. COMPARISON: Mammography: Comparison is made with available priors TECHNIQUE: Digital breast mammography with tomosynthesis is performed in both the craniocaudal and mediolateral oblique views along with computer-aided detection (CAD). FINDINGS: Limited images patient unable to move right arm, within these limitations: There are scattered areas of fibroglandular density. There are no significant masses, abnormal calcifications, or other abnormalities. MM/MM tomosynthesis screening BI IMPRESSION: No mammographic evidence of malignancy. ASSESSMENT: BI-RADS Category 1: Negative RECOMMENDATION: Routine annual mammography screening. 1 year F/U This examination should not preclude the clinical evaluation of a suspicious palpable abnormality. This patient's information was entered into a reminder system with a target due date for their next mammogram. Electronically signed by: Tiffanie Cruz DO 03/26/2025 06:27 PM [facility]
--- OUTSIDE RECORDS SUMMARY | 2025-03-23 14:03 | XMS_ITS | Data Portability ---
Author Organization [employer] [place] [facility] Address [address] [place] [address] Care Team Providers Care Center Consultant Name Role Phone [facility] Referring Provider REJI YAN Primary Care Provider Assessment No [...] ICD10 Code Diagnosis IMO Codes Diagnosis Note [id number] Ghulam Mendoza MD Main - [facility] [address] [place] [phone] 04/13/2023 13:43:30 04/15/2023 10:26:27 Chest pain [id number] R07.9 As noted, we were called to see this 72 yo F patient with mild-mod DM, hx CVA, regarding concerns of spontaneou s, sudden-ons et chest pain, which self resolved and was associated with SOB during exertion, though it's unclear if this was worse than baseline, as she is homebound. Evaluation in the field was performed by my boat mechanic colleague, as noted above, I provided real-time direction and supervisio n for this visit. The evaluation revealed normal VS, pain on palpation, but different, and normal VS other than residual deficits of remote CVA. EKG is poor quality but appears to show SR with long [place], atypical p morphology (e.g. V2), nl QRS, [...] Perez Member ID Guarantor Name 11/01/2023 1 [facility] - DOS ON OR AFTER 2022 - DUAL ELIGIBLE - [facility] OPTIONS AND ONE CARE (MEDICARE REPLACEMENT/ADV ANTAGE - HMO) Amaya Usama [id number] [facility] Notes Date Note Type Note Provider Name [...] .................. .................. .................. .................. .................. .................. ............... Lead Php Developer Note From Juliane Rosario: Sent to evaluate [...] appears well. EKG obtained and uploaded to [employer], orthostatic VS performed and were negative. [place] [facility] who recommended pt present to ER for possible cardiac r/o and further evaluation. Family agrees and pt will go to [place] [facility]. .................. .................. .................. .................. .................. .................. .................. ............... Disposition: Fulfilled Ghulam Mendoza MD [address] [facility],[address], [place], [address], [facility] [place] 04/14/2023 14:21:35 OBGyn Episode No OBEpisode recorded.
--- OUTSIDE RECORDS SUMMARY | 2025-03-23 14:03 | XMS_ITS | Patient Health Record ---
Author Organization [facility] Address [address] [place] [address] Care Team Providers Care Horse Groomer Name Role Phone Soo Syed Primary Care [...] Status Risk Notes Problem Colon cancer screening (589700857) Colon cancer screening (Z12.11) Active confirmed Problem Long-term current use of antiplatelet drug (282219984048816 ) Long-term use of aspirin therapy (Z79.82) Active confirmed Problem Long-term current use of drug therapy (500888011) intermediate project manager (current) use of oral hypoglycemic drugs (Z79.84) Active confirmed Plan Of Treatment Future Test Test Name Order Date COLONOSCOPY 01/17/2018 Insurance Providers Payer Name Payer Address Payer Phone Subscriber Number Group Number Insured Name Patient Relationship to Insured Coverage Start Date Coverage End Date [facility] [address] [place] [address] [id number] RADHA GAMBLE Self - patient is the insured Medicare of [place] [address] [place] [address] [id number] RADHA GAMBLE Self - patient is the insured Medical (General) History Medical History History ICD Code stroke 2006 diabetes mellitus type 2 hypertension hypercholesterolemia cerebrovascular accident with R paresis urinary incontinence GERD Diverticulosis Surgical History Surgery Date(Month/Year) surgery for a stroke
== END 2025-03-23 12:15 | disposition home or self-care (01) ==
LOC: HO.MAMMO 12:14
PROVIDERS: PCP Internal Medicine; Visit Provider Internal Medicine
DX: Z12.31 Encounter for screening mammogram for malignant neoplasm of breast (principal); Z13.820 Encounter for screening for osteoporosis; Z78.0 Asymptomatic menopausal state
CPT/HCPCS: 77063; 77067; 77080

== ENCOUNTER → 2025-03-23 13:00 | Outpatient (BNV) | payer OTHER, SELFPAY | PROVIDERS: PCP Internal Medicine; Visit Provider Radiology Diagnostic Radiology | DX: E28.39 Other primary ovarian failure (principal) | CPT/HCPCS: 77080 ==

== ENCOUNTER 2025-03-25 15:02 | Outpatient (AMB) | payer OTHER, SELFPAY ==
[2025-03-25 15:04] VITALS: BP 128/76; PULSE 82; O2SAT 95; BMI 26.7
--- NOTE | 2025-03-25 15:04 | MHC.OFFVIS ---
Vital Signs 03/25/25 15:04 Height 5 ft 2 in Weight 146 lb 2 oz BMI 26.7 BP 128/76 Blood Pressure Location Lt brachial Position Sitting Pulse 82 Pulse Source Pulse Oximeter Pulse Oximetry (%) 95 Oxygen Delivery Method Room Air Intake Visit Reasons: INP-cognitive functions and awareness (CONF.) Intake Note: Cognitive functions and awareness Account Analyst Required: Yes Account Analyst Services: Account Analyst Offered & Declined Account Analyst Name: Sister Accompanied by: Sister Allergies No Known Allergies (No Known Allergies*) Allergy (Verified 03/25/25 15:04) Medication List - Last Reconciled 03/25/25 by Anitra Farrell MD alprazolam 0.5 mg PO DAILY 1 day amlodipine 10 mg PO DAILY 90 days aspirin (Adult Aspirin Regimen) 81 mg PO DAILY 90 days atorvastatin 80 mg PO BEDTIME 90 days blood sugar diagnostic (FreeStyle Lite Strips) Use 1 test strip once a day blood-glucose meter (FreeStyle Lite Meter kit) As directed cane As directed docusate sodium 200 mg (2 x 100 mg) PO BEDTIME escitalopram oxalate 10 mg PO BEDTIME 90 days esomeprazole magnesium 40 mg PO QAM famotidine 20 mg PO BEDTIME 90 days hydrochlorothiazide 25 mg PO DAILY 90 days hydrocortisone 2.5% (Proctosol HC) 1 appl [place] BID-QID PRN incontinence pad, liner, disp Use 1 pad three times a day as needed lancets (FreeStyle Lancets) Use 1 lancet once a day lancets (Easy Touch Twist Lancets) As directed lisinopril 40 mg PO DAILY 90 days metformin 1,000 mg PO BID 90 days sitagliptin phosphate (Januvia) 100 mg PO QAM 90 days underpads (Bed Underpads) Use 2 bed underpads at bedtime as needed HPI Comments Details: 74y/o female comes with her sister for evaluation of memory issues. A tele division order technician was used during todays appointment. she had a stroke 25 years ago while she was in [place] and unable to speak since then, right hemiparesis. According to her sister for over 1 year she has been having some cognitive issues- she forgets to take showers, forgets to eat , hoards things , confused, she frequently thinks she lost her dog etc. she is also paranoid and locks everything she lives alone and has MAMMAL KEEPER -that helps her. she denies head injury , depression or anxietyshe walks slow. [facility] Medical History (Updated 03/25/25 @ 15:39 by Anitra Farrell MD) Dementia Insomnia DIOMEDES (generalized anxiety disorder) Mild depression CVA (cerebral vascular accident) GERD (gastroesophageal reflux disease) Dyslipidemia Diabetes mellitus Essential hypertension Surgical History No pertinent past surgical history Family History Father Stroke Mother No problems noted. Family/Other Hypertension Social History Housing: Apartment Are you a primary critical care nurse to a significant other at home: No Do you presently have visiting nurse or other home services: Yes Alcohol intake: never Patient Tobacco Use Status: Former Tobacco user Tobacco use type: Cigarette e-Cigarette/Vaping Use: Never Used Second Hand Smoke Exposure: No Advance Directives Date on File: 12/21/21 service: No Current occupational status: disabled Cognitive needs: Yes Hearing needs: No Vision needs: No Physical Exam Vital Signs: Last Vital Signs Pulse 82 03/25/25 15:04 BP 128/76 03/25/25 15:04 Pulse Ox 95 03/25/25 15:04 Oxygen Delivery Method Room Air 03/25/25 15:04 BMI result Body Mass Index 26.7 Const General: cooperative, healthy appearing, comfortable and no acute distress Nutritional Appearance: average body habitus Orientation/consciousness: oriented to person Eyes Pupils: Equal, round and reactive pupils present Neuro Other: cognitive evaluation was not done due to language issues Motor- Right UE - hypertonic , power 0/5 Right LE 3/5 Increased tone Face symmeric Can laught, make sounds , seems to understand but no words gait with cane circumduction right foot Unable ti shrug shoulders General: oriented to person Cranial nerves: Yes Facial sensation intact/muscles of mastication intact, Yes Equal, round and reactive pupils present, Yes Bilaterally intact EOM present, Yes Nystagmus not present, Yes Normal facial strength present and Yes Midline tongue present Cognition (Neuro): abnormal cognition Results Reviewed Results Reviewed: MRI Brain - 11/2024 No acute infarct. 2. Chronic left MCA territory infarct. 3. Irregular flow void in right proximal MCA with blooming artifact, possibly postsurgical change. Correlate clinically. 4. Mildly increased T2 signal in the bilateral medial temporal lobes without associated restricted diffusion. This is nonspecific and can be seen in mesial temporal sclerosis and neurodegenerative diseases. Assessment & Plan Assessment & Plan (1) Dementia: Comment: unable to do a complete cognitive exam- cody vascular vs mixed Code(s): F03.90 - Unspecified dementia, unspecified severity, without behavioral disturbance, psychotic disturbance, mood disturbance, and anxiety Category: Medical (2) Right hemiplegia: Comment: left MCA infarct Code(s): G81. - Hemiplegia, unspecified affecting right dominant side Category: Medical Plan Reviewed MRI and labs I will trial her on memantine Medications: New memantine after 30 day course of 14mg 21 mg PO DAILY 30 ea 0RF memantine after 30 day course of 21 mg 28 mg PO DAILY 30 ea 6RF memantine 7 mg PO DAILY 30 ea 0RF memantine after 30 day course of 7 mg 14 mg PO DAILY 30 ea 0RF Coding Level of Care Code New Pt Level 4 (08447) Complex EM visit Add On G2211 Diagnoses Dementia F03.90 Right hemiplegia G81.91
--- OUTSIDE RECORDS SUMMARY | 2025-03-25 18:17 | XMS_ITS | Patient Health Record ---
Author Organization [facility] Address [address] [place] [address] Care Team Providers Care Pants Closer Name Role Phone Soo Syed Primary Care Provider Unavailab David Thrasher Jr Unavailable [phone] Reason For Referral No Information Medications Medication [...] Status Risk Notes Problem Colon cancer screening (320852756) Colon cancer screening (Z12.11) Active confirmed Problem Long-term current use of antiplatelet drug (072289092727183 ) Long-term use of aspirin therapy (Z79.82) Active confirmed Problem Long-term current use of drug therapy (541131320) rodent exterminator (current) use of oral hypoglycemic drugs (Z79.84) Active confirmed Plan Of Treatment Future Test Test Name Order Date COLONOSCOPY 01/17/2018 Insurance Providers Payer Name Payer Address Payer Phone Subscriber Number Group Number Insured Name Patient Relationship to Insured Coverage Start Date Coverage End Date [facility] [address] [place] [address] [id number] RADHA GAMBLE Self - patient is the insured Medicare of [place] [employer] [address] [place] [address] [id number] RADHA GAMBLE Self - patient is the insured Medical (General) History Medical History History ICD Code stroke 2006 diabetes mellitus type 2 hypertension hypercholesterolemia cerebrovascular accident with R paresis urinary incontinence GERD Diverticulosis Surgical History Surgery Date(Month/Year) surgery for a stroke
--- OUTSIDE RECORDS SUMMARY | 2025-03-25 18:17 | XMS_ITS | Data Portability ---
Author Organization [facility] Address [address] [place] [address] Care Team Providers Care Green Building Energy Engineer Name Role Phone [facility] Referring Provider REJI YAN Primary [...] ICD10 Code Diagnosis IMO Codes Diagnosis Note [id number] Ghulam Mendoza MD Main - [facility] [address] [place] [phone] 04/13/2023 13:43:30 04/15/2023 10:26:27 Chest pain [id number] R07.9 As noted, we were called to see this 72 yo F patient with mild-mod DM, hx CVA, regarding concerns of spontaneou s, sudden-ons et chest pain, which self resolved and was associated with SOB during exertion, though it's unclear if this was worse than baseline, as she is homebound. Evaluation in the field was performed by my hand clipper colleague, as noted above, I provided real-time direction and supervisio n for this visit. The evaluation revealed normal VS, pain on palpation, but different, and normal VS other than residual deficits of remote CVA. EKG is poor quality but appears to show SR with long RI, atypical p morphology (e.g. V2), nl QRS, [...] Perez Member ID Guarantor Name 11/01/2023 1 [facility] - DOS ON OR AFTER 2022 - DUAL ELIGIBLE - GROUP HOME OPTIONS AND ONE CARE (MEDICARE REPLACEMENT/ADV ANTAGE - HMO) Amaya Usama [id number] [facility] Notes Date Note Type Note Provider [...] .................. .................. .................. .................. .................. .................. ............... Service Delivery Management Consultant Note From Juliane Rosario: Sent to [...] appears well. EKG obtained and uploaded to [employer], orthostatic VS performed and were negative. Consulted [facility] who recommended pt present to ER for possible cardiac r/o and further evaluation. Family agrees and pt will go to [facility]. .................. .................. .................. .................. .................. .................. .................. ............... Disposition: Fulfilled Ghulam Mendoza MD [address] [facility],[address], [place], [address], [facility] 04/14/2023 14:21:35 OBGyn Episode No OBEpisode recorded.
== END 2025-03-25 15:44 | disposition home or self-care (01) ==
LOC: HO.HSMS 15:02
PROVIDERS: PCP Internal Medicine; Visit Provider Psychiatry & Neurology Neurology
DX: F03.90 Unspecified dementia, unspecified severity, without behavioral disturbance, psychotic disturbance, mood disturbance, and anxiety (principal); G81.91 Hemiplegia, unspecified affecting right dominant side
CPT/HCPCS: 99204; G2211

== ENCOUNTER → 2025-03-25 15:02 | Outpatient (BNVA) | payer OTHER, SELFPAY | PROVIDERS: PCP Internal Medicine; Visit Provider Psychiatry & Neurology Neurology | DX: R41.89 Other symptoms and signs involving cognitive functions and awareness (principal); I69.351 Hemiplegia and hemiparesis following cerebral infarction affecting right dominant side; Z87.891 Personal history of nicotine dependence | CPT/HCPCS: 99202 ==